=== PATIENT | female | born 1945 | race Caucasian/White ===

== ENCOUNTER 2019-09-15 05:00 | Outpatient (RCR) | payer MEDICARE, OTHER, SELFPAY | END 2019-09-15 23:59 | disposition home or self-care (01) | LOC: LAB 05:00 | PROVIDERS: Family Provider Family Medicine; Visit Provider Family Medicine | DX: E87.1 Hypo-osmolality and hyponatremia (principal); J44.9 Chronic obstructive pulmonary disease, unspecified; D64.9 Anemia, unspecified; E03.9 Hypothyroidism, unspecified; E78.5 Hyperlipidemia, unspecified; E08.40 Diabetes mellitus due to underlying condition with diabetic neuropathy, unspecified; R60.9 Edema, unspecified; N39.0 Urinary tract infection, site not specified | CPT/HCPCS: 36415 ×2; 80048 ×5; 81001; 83880; 87077; 87086 ×2; 87186 ==

== ENCOUNTER 2019-09-30 06:00 | Outpatient (RCR) | payer MEDICARE, OTHER, SELFPAY | END 2019-09-30 23:59 | disposition home or self-care (01) | LOC: LAB 06:00 | PROVIDERS: Family Provider Family Medicine; Visit Provider Family Medicine | DX: I10 Essential (primary) hypertension (principal); J44.9 Chronic obstructive pulmonary disease, unspecified; N39.0 Urinary tract infection, site not specified; E87.1 Hypo-osmolality and hyponatremia; R60.9 Edema, unspecified; D64.9 Anemia, unspecified; E03.9 Hypothyroidism, unspecified; E08.40 Diabetes mellitus due to underlying condition with diabetic neuropathy, unspecified; E78.5 Hyperlipidemia, unspecified; I48.91 Unspecified atrial fibrillation | CPT/HCPCS: 36415; 80048; 85025 ==

== ENCOUNTER 2019-10-10 08:57 | Outpatient (RCR) | payer MEDICARE, OTHER, SELFPAY ==
[2019-10-10 09:51] LABS: Anion Gap 10.8 (5-19); Blood Urea Nitrogen 9 mg/dL (8-23); Calcium 9.5 mg/Dl (8.8-10.2); Carbon Dioxide 32 mmol/L (22-29); Chloride 93 mmol/L (98-107); Glucose 103 mg/dL (74-106); Potassium 3.8 mmol/L (3.5-5.1); Sodium 132 mmol/L (136-145)
== END 2019-10-31 23:59 | disposition home or self-care (01) ==
LOC: LAB 08:57
PROVIDERS: Family Provider Family Medicine; PCP Family Medicine; Visit Provider Family Medicine
DX: E87.6 Hypokalemia (principal); E87.1 Hypo-osmolality and hyponatremia
CPT/HCPCS: 80048

== ENCOUNTER 2020-12-17 09:17 | Inpatient (IN) | payer MEDICARE, OTHER, MEDICAID, SELFPAY ==
[2020-12-17] VITALS (17 sets, daily range): BP systolic 111–142; BP diastolic 47–87; PULSE 112–125; RESP 17–25; TEMP 36.6–37.2; O2SAT 94–97; BMI 20.5
--- NOTE | 2020-12-17 09:27 | ECG_ITS ---
[facility] Test Date: 2020-12-17 Pat Name: Jenifer Schwartz Department: Room: Gender: Female [employer]el [employer] Technician: : 1945 Requested By: Ana María Toribio Order Number: [id number] Jc MD: José Miguel Steele M.D. Measurements Intervals [place] Rate: 122 P: 71 NV: 151 QRS: -87 QRSD: 81 T: 75 QT: 319 QTc: 455 Interpretive Statements SINUS TACHYCARDIA LEFT AXIS DEVIATION [QRS AXIS < -30] PATTERN CONSISTENT WITH PULMONARY DISEASE Compared to ECG 09/15/2019 15:27:59 Left-axis deviation now present Left anterior fascicular block no longer present Myocardial infarct finding no longer present Electronically Signed On 12-17-2020 23:12:32 CDT by José Miguel Steele M.D. [id number]
[2020-12-17 09:51] LABS: Basophils # 0.1 10^3/uL (0.0-0.1); Basophils % 0.3 %; Eosinophils # 0.1 10^3/uL (0.0-0.8); Eosinophils % 0.2 %; Hematocrit 35.5 % (37.0-47.0); Hemoglobin 10.9 g/dL (11.5-15.3); Lymphocytes # 2.2 10^3/uL (0.8-4.8); Lymphocytes % 7.5 %; Mean Corpuscular HGB Conc 30.7 g/dL (30.0-36.0); Mean Corpuscular Hemoglobin 24.2 pg (28.0-34.0); Mean Corpuscular Volume 78.9 fL (81-99); Mean Platelet Volume 11.6 fL (7.4-10.4); Monocytes # 2.1 10^3/uL (0.2-0.9); Monocytes % 7.1 %; Neutrophils # 24.97 10^3/uL (1.8-7.7); Neutrophils % 84.2 %; Nucleated Red Blood Cells % 0 %; Platelet Count 438 10^3/cmm (130-400); Red Cell Distribution Width 15.7 % (12.1-15.1); White Blood Count 29.7 10^3/uL (4.0-10.0)
[2020-12-17] MEDS: ondansetron 2 mg/ML SDV 2 mL 4 MG IVP ×2 (09:51→15:16)
[2020-12-17] MEDS: pantoprazole 40 mg SDV IVP ×2 (09:57→21:25)
[2020-12-17 10:02] LABS: Alanine Aminotransferase 12 U/L (0-33); Albumin Level 3.3 g/dL (3.5-5.2); Alkaline Phosphatase 54 IU/L (35-105); Aspartate Amino Transferase 16 U/L (0-32); Blood Urea Nitrogen 31 mg/dL (8-23); Calcium 8.4 mg/dL (8.5-10.5); Carbon Dioxide 27 mmol/L (22-29); Chloride 93 mmol/L (98-107); Globulin 2.8 g/dL (1.3-4.6); Glucose 145 mg/dL (65-115); Magnesium 1.8 mg/dL (1.7-2.3); Osmolality Calculated 293 mOsm/kg (285-295); Sodium 137 mmol/L (136-145); Total Bilirubin 0.2 mg/dL (0.15-1.2); Total Protein 6.1 g/dL (6.6-8.7)
--- NOTE | 2020-12-17 10:09 | CT_ITS ---
WS: [id number] CT ABDOMEN PELVIS TECHNIQUE: Contrast-enhanced CT of the abdomen and pelvis with coronal and sagittal reformatted image s. CLINICAL INFORMATION: abdominal distention, GI bleed, sepsis COMPARISON: None. DLP: 1004.[address] scans at [facility] use at least one of these dose optimization techniques: automat ed exposure control; mA and/or kV adjustment per patient size (includes targeted exams where dose is matched to clinical indication); or iterative reconstruction. FINDINGS: Small bilateral pleural effusions. Compressive atelectasis in the lung bases. Subtotal consolidation left lower lobe partially visualized. Fluid distended stomach with air-fluid levels and increased att enuation layering blood products. Small esophageal hiatal hernia. Fluid-filled duodenum and proximal small bowel loops with a few air-fluid levels. Small bowel loops in the pelvis and right lower quadra nt appear decompressed. Colon is decompressed. Rectus sheath diastases with ventral abdominal wall la xity. A few abutting small bowel loops may be due to adhesions. Transition to normal caliber small panchito wel loops distal to the outpouching. Rectosigmoid constipation. Markedly urine distended bladder. Diffuse fatty infiltration liver. Portal vein and splenic veins are patent. Normal gallbladder. Adren al glands are normal. Normal bilateral renal parenchymal enhancement. Cortical atrophy. Mild aortic c alcification. Normal caliber abdominal aorta. Left MILY. Screw fixation right hip with intramedullary cedric. Multiple chronic compression fractures in the lumbar spine and lower thoracic spine. CT/CT abdomen pelvis w con* [id number] IMPRESSION: 1. Small bilateral pleural effusions with compressive atelectasis in the lung bases. Subtotal consolidation left lower lobe. Recommend correlation for pneumo edwige. 2. Marked fluid distention of the stomach with air-fluid levels and increased attenuation blood products. No free air or perforation. Reported history of hem atemesis 3. Fluid-filled normal caliber proximal duodenum and proximal small bowel loop s with a few air-fluid levels. 4. Rectus sheath diastases with ventral abdominal wall laxity. A few abutting small bowel loops in this area. Adhesions in this area may be contributing to p artial proximal small bowel obstruction. 5. Distal small bowel and colon are normal in appearance. 6. Marked urinary distention of the bladder. Notified Ana María Toribio MD at 12/17/2020 11:39 AM.
--- NOTE | 2020-12-17 10:23 | W.ED.GIBLEED ---
HPI - GI Bleed General: Chief complaint: GI Bleed Stated complaint: NAUSEA/ BLACK TARRY EMESIS Time Seen by Provider: 12/17/20 09:23 Source: patient Mode of arrival: EMS History of Present Illness: HPI Narrative: 75-year-old female [facility] after she had nausea, coffee-ground emesis, shortness of breath, and abdominal distention. She has history of dementia, COPD, PE, CAD. She is anticoagulated on Plavix and Eliquis. When EMS arrived, they found covered in coffee-ground emesis. No reports of fever. She is a poor historian due to dementia, just says that she has been feeling like hell for 2 days, with pain and discomfort all over. Associated symptoms: Reports abdominal pain, easy bruising and vomiting; Denies chills, fever(s) or rash Review of Systems General: Reports: ROS unobtainable due to mental status Const: Denies: fever(s) or chills ENMT: Reports: hoarseness and dry mouth Card: Denies: chest pain, palpitations or edema Resp: Reports: dyspnea, productive cough and wheezing; Denies: pain on inspiration GI: Reports: abdominal pain, vomiting, coffee ground emesis, heartburn and melena : Reports: urinary frequency and urinary urgency; Denies: difficulty voiding Musc: Reports: neck pain, back pain, extremity pain, joint pain, joint stiffness, limited range of motion and muscle weakness Skin/Breast: Denies: rash, pruritus or erythema Neuro: Reports: weakness in extremities, difficulty walking and confusion Psych: Reports: anxiety, mood swings, irritability and memory loss Markie/Lymph: Reports: easy bruising and easy bleeding PFSH ED PFSH: Medical History Ataxia Congestive heart failure Chronic combined systolic/diastolic COPD (chronic obstructive pulmonary disease) Coronary artery disease / [place] COVID-19 Aug 2020 Degenerative joint disease Dementia Depression DVT (deep venous thrombosis) Hypertension Neuropathy Pulmonary embolism Type 2 diabetes mellitus Surgical History History of primary section x 3 Status post hip surgery Bilateral hip fractures Social History Smoking and tobacco status: former smoker Quit status (tobacco): has quit using tobacco Year quit tobacco: 2016 Former quit date comment: [id number] history previously Alcohol intake: never Physical Exam Const: COMMON NORMALS: no acute distress GENERAL APPEARANCE: cooperative, anxious and frail appearing; not diaphoretic and not Edematous NUTRITIONAL APPEARANCE: thin ORIENTATION/CONSCIOUSNESS: Yes awake and Yes oriented to person HENMT: COMMON NORMALS: normocephalic and atraumatic HEAD & SCALP: normocephalic and atraumatic FACE & SINUS: normal facial exam and face symmetric GI: COMMON NORMALS: Soft to palpation INSPECTION: Yes abdominal distension AUSCULTATION: Yes Hypoactive bowel sounds present PALPATION: Yes Soft to palpation, Yes Tenderness to palpation present (GI), No Guarding due to palpation present (GI) and No Rigid due to palpation PERCUSSION: tympanic to percussion Extremity: COMMON NORMALS: normal to inspection and no clubbing, cyanosis or edema Neuro: SENSORIUM/ORIENTATION: Yes oriented to person Skin: COMMON NORMALS: no rashes or lesions noted, no wounds and no jaundice NARRATIVE SKIN EXAM: Pale GENERAL SKIN EXAM: no rashes or lesions noted Course Vital Signs: Vital signs: Vital Signs Temperature 97.6 F 12/19/20 14:42 Pulse Rate 93 12/19/20 15:17 Respiratory Rate 18 12/19/20 15:11 Blood Pressure 117/51 12/19/20 14:42 Pulse Oximetry 97 12/19/20 15:11 MDM - GI Bleed MDM Narrative: Medical decision making narrative: 75[facility] and Plavix presenting with abdominal distention, acute coffee-ground emesis since this morning. She is tachycardic in the 120s on arrival, otherwise does not appear to be in any distress. She has residual coffee-ground emesis around her neck , and staining of her mouth. Her abdomen is distended and tympanic, tender, without any rebound or guarding. Initial l hemoglobin is stable at 10.9, white count is elevated 29.7. Empiric antibiotics initiated-suspect UTI versus intra-abdominal infection or both. Urine sent for culture. Kcentra given to reverse start reversal of anticoagulation, Protonix 40 mg IVX1 2 units of blood type and screen, on hold. I expect hgb will drop significantly on serial draws. CT abdomen shows markedly distended stomach with air-fluid levels, and increased attenuation suggesting content is blood products. No free air. Possible partial proximal small bowel obstruction, urinary distention. Repeat H&H, hemoglobin down to 9.1, hemodynamics unchanged still mildly tachycardic. Discussed the case with Dr. Brannon who will consult on the case after she is admitted. No emergent endoscopy indicated at this time since she has had no signs of active bleeding and her hemoglobin is stable, and she still has the anticoagulants in her system. Discussed the case with Dr. Magallanes, hospitalist, she agrees with keeping the blood on hold for now with a hgb threshold to transfuse of 8.0 since she had does have underlying CAD and is anticoagulated. Medical Records: Attestation: I reviewed the patient's medical records. Lab Data: Attestation: I reviewed the patient's lab results. Labs: Lab Results 12/17/20 12/17/20 12/17/20 Range/Units 09:25 09:25 09:25 WBC 29.7 H (4.0-10.0) 10^3/ uL RBC 4.50 (4.1-5.3) 10^6/u L Hgb 10.9 L (11.5-15.3) g/dL Hct 35.5 L (37.0-47.0) % MCV 78.9 L (81-99) fL MCH 24.2 L (28.0-34.0) pg MCHC 30.7 (30.0-36.0) g/dL RDW 15.7 H (12.1-15.1) % Plt Count 438 H (130-400) 10^3/c mm MPV 11.6 H (7.4-10.4) fL Neut % (Auto) 84.2 % Lymph % (Auto) 7.5 % [place] % (Auto) 7.1 % Eos % (Auto) 0.2 % Baso % (Auto) 0.3 % Neut # (Auto) 24.97 H (1.8-7.7) 10^3/u L Lymph # (Auto) 2.2 (0.8-4.8) 10^3/u L [place] # (Auto) 2.1 H (0.2-0.9) 10^3/u L Eos # (Auto) 0.1 (0.0-0.8) 10^3/u L Baso # (Auto) 0.1 (0.0-0.1) 10^3/u L Nucleated RBC % (a uto) 0 % Nucleated RBCs # 0.0 /100WBC PT 15.60 H (12.1-14.9) SECO NDS INR 1.20 (0.8-1.2) Sodium 137 (136-145) mmol/L Potassium 4.0 (3.5-5.1) mmol/L Chloride 93 L (98-107) mmol/L Carbon Dioxide 27 (22-29) mmol/L Anion Gap 21.0 H (5-19) BUN 31 H (8-23) mg/dL Creatinine 0.5 (0.5-0.9) mg/dL GFR Calculation Not Reportable Glucose 145 H (65-115) mg/dL Calculated Osmolal ity 293 (285-295) mOsm/k g Lactate (0.5-2.2) mmol/L Calcium 8.4 L (8.5-10.5) mg/dL Magnesium 1.8 (1.7-2.3) mg/dL Total Bilirubin 0.2 (0.15-1.2) mg/dL AST 16 (0-32) U/L ALT 12 (0-33) U/L Alkaline Phosphata se 54 (35-105) IU/L Total Protein 6.1 L (6.6-8.7) g/dL Albumin 3.3 L (3.5-5.2) g/dL Globulin 2.8 (1.3-4.6) g/dL Urine Color (Yellow) Urine Appearance (CLEAR) Urine pH (5-7) Ur Specific Gravit y (1.005-1.030) Urine Protein (Negative) Urine Glucose (UA) (Normal) Urine Ketones (Negative) Urine Blood (Negative) Urine Nitrate (Negative) Urine Bilirubin (Negative) Urine Urobilinogen (Negative) mg/dL Ur Leukocyte Sharlene ase (Negative) Urine RBC (0-2) /hpf Urine WBC (0-5) /hpf Ur Squamous Epith Cells (0-5) /hpf Amorphous Sediment Urine Bacteria (NONE) /hpf Urine Mucus /hpf Blood Type Rho(D) Type Antibody Screen Crossmatch 12/17/20 12/17/20 12/17/20 Range/Units 09:53 11:23 11:40 WBC (4.0-10.0) 10^3/ uL RBC (4.1-5.3) 10^6/u L Hgb (11.5-15.3) g/dL Hct (37.0-47.0) % MCV (81-99) fL MCH (28.0-34.0) pg MCHC (30.0-36.0) g/dL RDW (12.1-15.1) % Plt Count (130-400) 10^3/c mm MPV (7.4-10.4) fL Neut % (Auto) % Lymph % (Auto) % [place] % (Auto) % Eos % (Auto) % Baso % (Auto) % Neut # (Auto) (1.8-7.7) 10^3/u L Lymph # (Auto) (0.8-4.8) 10^3/u L [place] # (Auto) (0.2-0.9) 10^3/u L Eos # (Auto) (0.0-0.8) 10^3/u L Baso # (Auto) (0.0-0.1) 10^3/u L Nucleated RBC % (a uto) % Nucleated RBCs # /100WBC PT (12.1-14.9) SECO NDS INR (0.8-1.2) Sodium (136-145) mmol/L Potassium (3.5-5.1) mmol/L Chloride (98-107) mmol/L Carbon Dioxide (22-29) mmol/L Anion Gap (5-19) BUN (8-23) mg/dL Creatinine (0.5-0.9) mg/dL GFR Calculation Glucose (65-115) mg/dL Calculated Osmolal ity (285-295) mOsm/k g Lactate 1.0 (0.5-2.2) mmol/L Calcium (8.5-10.5) mg/dL Magnesium (1.7-2.3) mg/dL Total Bilirubin (0.15-1.2) mg/dL AST (0-32) U/L ALT (0-33) U/L Alkaline Phosphata se (35-105) IU/L Total Protein (6.6-8.7) g/dL Albumin (3.5-5.2) g/dL Globulin (1.3-4.6) g/dL Urine Color Yellow (Yellow) Urine Appearance Cloudy (CLEAR) Urine pH 5 (5-7) Ur Specific Gravit y 1.015 (1.005-1.030) Urine Protein Trace (Negative) Urine Glucose (UA) Norm (Normal) Urine Ketones 1+ H (Negative) Urine Blood 2+ H (Negative) Urine Nitrate Negative (Negative) Urine Bilirubin 1+ H (Negative) Urine Urobilinogen 1 H (Negative) mg/dL Ur Leukocyte Sharlene ase 2+ H (Negative) Urine RBC 25-40 H (0-2) /hpf Urine WBC >100 H (0-5) /hpf Ur Squamous Epith Cells 5-10 H (0-5) /hpf Amorphous Sediment Not Reportable Urine Bacteria 3+ H (NONE) /hpf Urine Mucus 1+ /hpf Blood Type A Positive Rho(D) Type Positive / 4+ Antibody Screen Negative Crossmatch See Detail 12/17/20 Range/Units 12:16 WBC (4.0-10.0) 10^3/ uL RBC (4.1-5.3) 10^6/u L Hgb 9.1 L (11.5-15.3) g/dL Hct 30.2 L (37.0-47.0) % MCV (81-99) fL MCH (28.0-34.0) pg MCHC (30.0-36.0) g/dL RDW (12.1-15.1) % Plt Count (130-400) 10^3/c mm MPV (7.4-10.4) fL Neut % (Auto) % Lymph % (Auto) % [place] % (Auto) % Eos % (Auto) % Baso % (Auto) % Neut # (Auto) (1.8-7.7) 10^3/u L Lymph # (Auto) (0.8-4.8) 10^3/u L [place] # (Auto) (0.2-0.9) 10^3/u L Eos # (Auto) (0.0-0.8) 10^3/u L Baso # (Auto) (0.0-0.1) 10^3/u L Nucleated RBC % (a uto) % Nucleated RBCs # /100WBC PT (12.1-14.9) SECO NDS INR (0.8-1.2) Sodium (136-145) mmol/L Potassium (3.5-5.1) mmol/L Chloride (98-107) mmol/L Carbon Dioxide (22-29) mmol/L Anion Gap (5-19) BUN (8-23) mg/dL Creatinine (0.5-0.9) mg/dL GFR Calculation Glucose (65-115) mg/dL Calculated Osmolal ity (285-295) mOsm/k g Lactate (0.5-2.2) mmol/L Calcium (8.5-10.5) mg/dL Magnesium (1.7-2.3) mg/dL Total Bilirubin (0.15-1.2) mg/dL AST (0-32) U/L ALT (0-33) U/L Alkaline Phosphata se (35-105) IU/L Total Protein (6.6-8.7) g/dL Albumin (3.5-5.2) g/dL Globulin (1.3-4.6) g/dL Urine Color (Yellow) Urine Appearance (CLEAR) Urine pH (5-7) Ur Specific Gravit y (1.005-1.030) Urine Protein (Negative) Urine Glucose (UA) (Normal) Urine Ketones (Negative) Urine Blood (Negative) Urine Nitrate (Negative) Urine Bilirubin (Negative) Urine Urobilinogen (Negative) mg/dL Ur Leukocyte Sharlene ase (Negative) Urine RBC (0-2) /hpf Urine WBC (0-5) /hpf Ur Squamous Epith Cells (0-5) /hpf Amorphous Sediment Urine Bacteria (NONE) /hpf Urine Mucus /hpf Blood Type Rho(D) Type Antibody Screen Crossmatch Discharge Plan Discharge Patient Disposition: Admitted As Inpatient Admit Provider: Kim Magallanes Coding Level of Care Code ED Director Phone for g Fwd Exam Detailed
[2020-12-17 12:00] LABS: Add Urine Microscopic? YES; Bilirubin Urine 1+ (Negative); Blood Urine 2+ (Negative); Glucose Urine UA Norm (Normal); Ketones Urine 1+ (Negative); Leukocyte Esterase Urine 2+ (Negative); Nitrate Urine Negative (Negative); Protein Urine Trace (Negative); Specific Gravity, Urine 1.015 (1.005-1.030); Urine Appearance Cloudy (CLEAR); Urine Color Yellow (Yellow); Urobilinogen Urine 1 mg/dL (Negative); pH Urine 5 (5-7)
[2020-12-17 12:08] LABS: Add Urine Culture? Yes; Bacteria Urine 3+ /hpf; Mucus Urine 1+ /hpf; RBC Urine 25-40 /hpf (0-2); WBC Urine >100 /hpf (0-5)
[2020-12-17 12:24] LABS: Hematocrit 30.2 % (37.0-47.0); Hemoglobin 9.1 g/dL (11.5-15.3)
--- NOTE | 2020-12-17 13:25 | XR_ITS ---
WS: [id number] XR chest 1V portable [id number] REASON FOR EXAM: NG TUBE PLACEMENT VERIFICATION FINDINGS: Consolidation in both lower lobes most notably on the left. Moderate pleural effusion on the right sm aller pleural effusion on the left. Nasogastric tube has been placed. The tip is below the diaphragm or there is still significant gaseou s distention of the stomach. Advancement of 2 to 3 cm may be beneficial. XR/XR chest 1V portable [id number] IMPRESSION: Bilateral lower lobe consolidation and pleural effusions. Nasogastric position as above.
--- NOTE | 2020-12-17 14:18 | PC.NURSE ---
Claudia and I assisted the patient by changing the bedding and cleaning the patient up and changed her gown. We then boosted her up in bed to make her more comfortable. Patient is resting as comfortably as she can at this time.
[2020-12-17 14:40] LABS: Hematocrit 31.1 % (37.0-47.0); Hemoglobin 9.4 g/dL (11.5-15.3)
--- NOTE | 2020-12-17 14:46 | P.CONIM_ITS ---
Providers/Reason For Consult Consulting Physican/Specialty*: General Surgery Arsen Brannon MD Reason for Consult*: Coffee-ground emesis. Primary Care Provider: Fanny Devlin [place] [facility] [place] Illness History of Present Illness Jenifer Schwartz is a 75 year old female brought from a longterm today for repeated episodes of coffee-ground appearing emesis. The patient was found to be mildly anemic on presentation but a CAT scan showed that her stomach was full of fluid, some of which appear to be fresh blood given the blush that was seen. The patient has been on Plavix, Eliquis and aspirin for a couple of years following the diagnosis of a DVT/PE. She has never had any history of peptic ulcer disease to her knowledge. She has no endoscopic reports in the [facility] computer system. The patient denies any epigastric discomfort. She does normally have some problems with constipation. Review of Systems General: Reports: 10 or more systems reviewed and unremarkable except in HPI and below Const: Denies: fever(s) Resp: Reports: dyspnea (On occasion --gets nebulizer treatments) GI: Reports: nausea, coffee ground emesis and constipation; Denies: abdominal pain : Reports: other (History of urinary tract infections) Meds/Allergies Home Medications and Allergies Home Medications Medication Instructions Recorded Confirmed Last Taken Type acetaminophen [Tylenol] 650 mg PO QID PRN 12/17/20 12/17/20 12/16/20 History albuterol sulfate 2.5 mg INHALATION Q4H PRN 12/17/20 12/17/20 Unknown History apixaban [Eliquis] 5 mg PO BID@08,20 12/17/20 12/17/20 12/17/20 History bisacodyl 10 mg ID DAILY PRN 12/17/20 12/17/20 Unknown History budesonide-formoterol [Symbicort] 2 puff INHALATION BID@08,199912/17/20 12/17/20 12/17/20 History camphor-menthol [Biofreeze] 1 applic TOPICAL TID PRN 12/17/20 12/17/20 Unknown History clopidogrel [Plavix] 75 mg PO DAILY@0800 12/17/20 12/17/20 12/17/20 History food supplemt, lactose-reduced 30 ea PO BID 03/12/17/20 12/17/20 History [TwoCal HN] furosemide [Lasix] 20 mg PO DAILY@0800 12/17/20 12/17/20 12/17/20 History gabapentin 100 mg PO TID@0800,1600,199912/17/20 12/17/20 12/17/20 History hydrocodone-acetaminophen 1 tab PO Q6H PRN 12/17/20 12/17/20 Unknown History ipratropium-albuterol 3 ml INHALATION Q4H PRN 12/17/20 12/17/20 12/17/20 History lorazepam 0.5 mg PO Q4H PRN 12/17/20 12/17/20 12/16/20 History magnesium hydroxide [Milk of 30 ml PO DAILY PRN 12/17/20 12/17/20 Unknown History Magnesia] metoprolol tartrate 12.5 mg PO BID@,12/17/20 12/17/20 12/17/20 History mirtazapine 7.5 mg PO DAILY@199912/17/20 12/17/20 12/16/20 History multivitamin 1 tab PO DAILY@0800 12/17/20 12/17/20 12/17/20 History ondansetron HCl [Zofran] 4 mg PO Q8H PRN 12/17/20 12/17/20 12/17/20 History pantoprazole 40 mg PO DAILY@08 12/17/20 12/17/20 12/17/20 History polyethylene glycol 3350 [Miralax] 17 g PO DAILY PRN 12/17/20 12/17/20 Unknown History potassium chloride 10 meq PO DAILY@0800 12/17/20 12/17/20 12/17/20 History sennosides-docusate sodium 1 tab-cap PO BID PRN 12/17/20 12/17/20 Unknown History [Senna-S] simvastatin 40 mg PO DAILY@199912/17/20 12/17/20 12/16/20 History sodium phosphates [Enema 118 ml ID DAILY PRN 12/17/20 12/17/20 Unknown History Disposable] Allergies Allergy/AdvReac Type Severity Reaction Status Date / Time No Known Allergies Allergy Verified 12/17/20 09:37 PFSH Acute PFSH: Medical History (Updated 12/17/20 @ 17:01 by Arsen Brannon MD) Ataxia Congestive heart failure Chronic combined systolic/diastolic COPD (chronic obstructive pulmonary disease) Coronary artery disease / [place] Degenerative joint disease Dementia Depression DVT (deep venous thrombosis) Hypertension Neuropathy Pulmonary embolism Type 2 diabetes mellitus Surgical History (Updated 12/17/20 @ 17:07 by Arsen Brannon MD) History of primary section x 3 Status post hip surgery Bilateral hip fractures Social History (Updated 12/17/20 @ 16:29 by Arsen Brannon MD) Smoking and tobacco status: former smoker Quit status (tobacco): has quit using tobacco Year quit tobacco: 2016 Former quit date comment: [id number] history previously Alcohol intake: never Vitals/I&O/Wt Last Vital Signs Temp 97.8 F 12/17/20 09:18 Pulse 115 H 12/17/20 13:00 Resp 19 H 12/17/20 13:00 BP 142/62 12/17/20 13:00 Pulse Ox 95 12/17/20 13:00 Weight last 48 hrs Weight 120 lb Physical Exam Narrative: EXAM NARRATIVE: The patient was encountered in her room in the emergency department. She does not appear to be in any distress. There is a nasogastric tube in place which is draining fairly black material. The pupils are equal. No carotid bruits are heard. The lungs are clear anteriorly. The heart sounds are somewhat distant but her heart is regular. The abdomen is mildly obese but is soft and completely nontender. I cannot feel any obvious masses. The extremities reveal no edema. Neurologically the patient appears to be grossly intact Data Imaging^: CT Abd/Pel: Radiologist's impression: CT scan abdomen/pelvis 12/17/2020 IMPRESSION: 1. Small bilateral pleural effusions with compressive atelectasis in the lung bases. Subtotal consolidation left lower lobe. Recommend correlation for pneumonia. 2. Marked fluid distention of the stomach with air-fluid levels and increased attenuation blood products. No free air or perforation. Reported history of hematemesis 3. Fluid-filled normal caliber proximal duodenum and proximal small bowel loops with a few air-fluid levels. 4. Rectus sheath diastases with ventral abdominal wall laxity. A few abutting small bowel loops in this area. Adhesions in this area may be contributing to partial proximal small bowel obstruction. 5. Distal small bowel and colon are normal in appearance. 6. Marked urinary distention of the bladder. A&P Assessment and plan (1) Coffee ground emesis: This apparently just started earlier today. The patient has been on Plavix, Eliquis and aspirin for some time. She is obviously going to bleed from things more readily than someone who does not have to be on these medications. I discussed an EGD with with the patient and her daughter. Details and risks of the procedure were gone over. The patient seems to understand and is agreeable to proceeding with an EGD tomorrow morning, assuming continued stability. I will make arrangements for an EGD tomorrow morning around 9:00 ? 9:30. Status: Acute (2) Anemia due to blood loss: The patient has been transfused. I expect her hemoglobin level would have continued to drop with hydration/equilibration without a transfusion. Status: Acute Consult Attestations Medical Necessity Statement: See admitting service's notation. Coding Level of Care Code Acute Weather Algorithm Scientist for [facility] Diagnoses Coffee ground emesis K92.0 Anemia due to blood loss D50.0
[2020-12-17] MEDS: piperacillin-tazobactam 3.375 GM in sodium chloride 0.9% (plus) 50 ML IV ×2 (15:21→23:37)
--- NOTE | 2020-12-17 16:53 | PM.HP ---
Providers/Chief Complaint Admitting Physician: Kim Magallanes MD Primary Care Provider: Fanny Devlin MD, [facility] Chief Complaint: NAUSEA/ BLACK TARRY VOMIT History of Present Illness History obtained by talking to patient and [place] staff. Jenifer Schwartz is a 75 year old female with PMH as below sent from [facility] today after being noted to have several episodes of hematemesis starting overnight, described as coffee ground emesis. She appared to have had Viral gastroenteritis earlier this week when several other patients at the facility had nausea, vomiting and diarrhea. Symptoms then subsided in 48 hrs, until vomiting started again last night. Asymptomatic between episodes. No aman noted at [place] however at time of my exam patient having melanotic BM. She is tachycardix with HR ~110, however BP has remained stable. Denies any dizziness, LOC. Afebrile. Denies abdominal pain. No past h/o GI bleed. Hb currently at 10.9 initially, drifted to ~[address] abdomen obtaiend in ER showed distended stomach with blood, NGT placed from which coffee ground matreial is currenty being aspirated. H/o covid 19 infection in August 2020. Not vaccinated per her wishes. At baseline, patient has short term memory imapirment, however able to have appropriate conversation. Self feeds,ambulates with assistance. Review of Systems General: Reports: 10 or more systems reviewed and unremarkable except in HPI and below Const: Denies: fever(s), chills or body aches Eyes: Denies: change in vision, blurry vision or photophobia ENMT: Reports: hoarseness; Denies: throat pain, enlarged tonsils, odynophagia or nasal congestion Card: Denies: chest pain, palpitations, irregular heart rhythm, edema, swelling of feet/ankles, lightheadedness, pre-syncope, dyspnea on exertion or orthopnea Resp: Denies: dyspnea, productive cough, non-productive cough, wheezing, stridor, pain on inspiration, change in phlegm color, hemoptysis or chest congestion GI: Denies: abdominal pain, nausea, vomiting, hematemesis, coffee ground emesis, dysphagia, heartburn, diarrhea, constipation, GI cramping, change in stool character, hematochezia or melena : Denies: flank pain, difficulty voiding, dysuria, urinary frequency, urinary urgency, urinary hesitancy or hematuria Musc: Denies: neck pain, back pain, extremity pain, joint swelling, joint warmth or deformity Neuro: Denies: headache(s), numbness in extremities, weakness in extremities, sensory changes, difficulty walking, frequent falls, dizziness, vertigo, behavioral changes, Slurred speech present or seizure-like activity Psych: Denies: anxiety, depression, suicidal ideation or homicidal ideation Endo: Denies: polyuria, polydipsia, tired all the time, cold intolerance or hot flashes Markie/Lymph: Denies: easy bruising or easy bleeding Medications/Allergies Home Medications Medication Instructions Recorded Confirmed Last Taken Type acetaminophen [Tylenol] 650 mg PO QID PRN 12/17/20 12/17/20 12/16/20 History albuterol sulfate 2.5 mg INHALATION Q4H PRN 12/17/20 12/17/20 Unknown History apixaban [Eliquis] 5 mg PO BID@08,20 12/17/20 12/17/20 12/17/20 History bisacodyl 10 mg NE DAILY PRN 12/17/20 12/17/20 Unknown History budesonide-formoterol [Symbicort] 2 puff INHALATION BID@0800,199912/17/20 12/17/20 12/17/20 History camphor-menthol [Biofreeze] 1 applic TOPICAL TID PRN 12/17/20 12/17/20 Unknown History clopidogrel [Plavix] 75 mg PO DAILY@0800 12/17/20 12/17/20 12/17/20 History food supplemt, lactose-reduced 30 ea PO BID 12/17/20 12/17/20 12/17/20 History [TwoCal HN] furosemide [Lasix] 20 mg PO DAILY@0800 12/17/20 12/17/20 12/17/20 History gabapentin 100 mg PO TID@0800,1600,199912/17/20 12/17/20 12/17/20 History hydrocodone-acetaminophen 1 tab PO Q6H PRN 12/17/20 12/17/20 Unknown History ipratropium-albuterol 3 ml INHALATION Q4H PRN 12/17/20 12/17/20 12/17/20 History lorazepam 0.5 mg PO Q4H PRN 12/17/20 12/17/20 12/16/20 History magnesium hydroxide [Milk of 30 ml PO DAILY PRN 12/17/20 12/17/20 Unknown History Magnesia] metoprolol tartrate 12.5 mg PO BID@,12/17/20 12/17/20 12/17/20 History mirtazapine 7.5 mg PO DAILY@199912/17/20 12/17/20 12/16/20 History multivitamin 1 tab PO DAILY@0812/17/20 12/17/20 12/17/20 History ondansetron HCl [Zofran] 4 mg PO Q8H PRN 12/17/20 12/17/20 12/17/20 History pantoprazole 40 mg PO DAILY@12/17/20 12/17/20 12/17/20 History polyethylene glycol 3350 [Miralax] 17 g PO DAILY PRN 12/17/20 12/17/20 Unknown History potassium chloride 10 meq PO DAILY@0812/17/20 12/17/20 12/17/20 History sennosides-docusate sodium 1 tab-cap PO BID PRN 12/17/20 12/17/20 Unknown History [Senna-S] simvastatin 40 mg PO DAILY@199912/17/20 12/17/20 12/16/20 History sodium phosphates [Enema 118 ml NE DAILY PRN 12/17/20 12/17/20 Unknown History Disposable] Allergies Allergy/AdvReac Type Severity Reaction Status Date / Time No Known Allergies Allergy Verified 12/17/20 09:37 PFSH Acute PFSH: Medical History (Updated 12/17/20 @ 19:19 by Kim Magallanes MD) Ataxia Congestive heart failure Chronic combined systolic/diastolic COPD (chronic obstructive pulmonary disease) Coronary artery disease / [place] COVID-19 Aug 2020 Degenerative joint disease Dementia Depression DVT (deep venous thrombosis) Hypertension Neuropathy Pulmonary embolism Type 2 diabetes mellitus Surgical History History of primary section x 3 Status post hip surgery Bilateral hip fractures Social History Smoking and tobacco status: former smoker Quit status (tobacco): has quit using tobacco Year quit tobacco: 2017 Former quit date comment: [id number] history previously Alcohol intake: never Vitals/I&O/Wt Last Vital Signs Temp 97.8 F 12/17/20 09:18 Pulse 114 H 12/17/20 14:45 Resp 22 H 12/17/20 15:00 BP 117/87 12/17/20 15:00 Pulse Ox 96 12/17/20 15:00 12/17/20 12/17/20 12/17/20 06:59 14:59 22:59 Intake Total 110 / 110 60 / 170 Balance 110 / 110 60 / 170 Weight last 48 hrs Weight 54.431 kg Physical Exam Narrative: EXAM NARRATIVE: General: No acute distress, AO x3 HEENT: PERRLA, pupils bilaterally equal and reactive, pallors present, NGT to suction Chest: Normal vesicular breath sounds, no added sounds, equal good air entry bilaterally CVS: S1-S2 regular, no murmurs, no tachycardia, no gallops, no rubs Abdomen: Soft, nontender, no organomegaly, bowel sounds present Neuro: No focal deficits, no facial deformity, AO x3, power 5/5 in all limbs Extremities: no edema, cyanosis or clubbing Data : 12/17/20 14:30 12/17/20 09:25 A&P Assessment and plan (1) Anemia due to blood loss: monitor H&H every 6 hrs transfuse if Hb <8 currently with tachycardia, BP stable, no dizziness or LOC Status: Acute (2) Coffee ground emesis: likely 2/[address] ALSTON consulted to evalute for UGIE protonix 40mg iv q12h patient is on Eliquis for h/o DVT/PE and Plavix, both of which are on hold currently she has received K centra in the ER x 1 NPO Gentle IVF Status: Acute (3) Aspiration into respiratory tract: B/L LL consolidation , may be related to aspiration overnight from emesis no reported cough, fever or dyspnea Leukocytosis may be 2/2 hemoconecntration, however in the presence of B/L infiltrates and positive UA, cannot exclude infection Stated on empiric zosyn s/p Covid in Aug 2020 Status: Acute (4) UTI (urinary tract infection): + UA, leukocytosis Status: Acute Attestations Medical Necessity Statement*: UGI bleed, anemia, close HB monitoring, need for iv abx as above, anticipate >2midnight admission Coding Level of Care Code Acute Twisting Operator for g Fwd Diagnoses Anemia due to blood loss D50.0 Coffee ground emesis K92.0 Aspiration into respiratory tract T17.908A UTI (urinary tract infection) N39.0
[2020-12-17 20:51] LABS: Hematocrit 30.6 % (37.0-47.0); Hemoglobin 9.2 g/dL (11.5-15.3)
[2020-12-17] MEDS: ipratropium-albuterol 3 mL Neb INHALATION (22:04)
--- NOTE | 2020-12-17 23:40 | PC.NURSE ---
Patient has NG tube placed to right nare in ED. Attached to intermittent suction. Very small amount of clear fluid observed with small amount of coffee ground sediment. Patient denies any nausea at present. No distress observed.
[2020-12-18] VITALS (19 sets, daily range): BP systolic 98–157; BP diastolic 49–73; PULSE 87–122; RESP 16–26; TEMP 36.5–37.4; O2SAT 90–963
[2020-12-18 04:07] LABS: Basophils # 0.1 10^3/uL (0.0-0.1); Basophils % 0.3 %; Eosinophils # 0.2 10^3/uL (0.0-0.8); Eosinophils % 0.9 %; Hematocrit 28.8 % (37.0-47.0); Hemoglobin 8.5 g/dL (11.5-15.3); Lymphocytes # 2.5 10^3/uL (0.8-4.8); Lymphocytes % 9.5 %; Mean Corpuscular HGB Conc 29.5 g/dL (30.0-36.0); Mean Corpuscular Hemoglobin 24.2 pg (28.0-34.0); Mean Corpuscular Volume 82.1 fL (81-99); Mean Platelet Volume 11.4 fL (7.4-10.4); Monocytes % 7.6 %; Neutrophils # 21.21 10^3/uL (1.8-7.7); Neutrophils % 80.9 %; Nucleated Red Blood Cells % 0 %; Platelet Count 336 10^3/cmm (130-400); Red Blood Count 3.51 10^6/uL (4.1-5.3); White Blood Count 26.2 10^3/uL (4.0-10.0)
[2020-12-18 04:43] LABS: Alanine Aminotransferase 26 U/L (0-33); Albumin Level 2.8 g/dL (3.5-5.2); Alkaline Phosphatase 52 IU/L (35-105); Anion Gap 14.2 (5-19); Aspartate Amino Transferase 36 U/L (0-32); Blood Urea Nitrogen 20 mg/dL (8-23); Calcium 8.3 mg/dL (8.5-10.5); Carbon Dioxide 27 mmol/L (22-29); Chloride 97 mmol/L (98-107); Globulin 2.9 g/dL (1.3-4.6); Glucose 105 mg/dL (65-115); Osmolality Calculated 283 mOsm/kg (285-295); Potassium 3.2 mmol/L (3.5-5.1); Sodium 135 mmol/L (136-145); Total Bilirubin 0.2 mg/dL (0.15-1.2); Total Protein 5.7 g/dL (6.6-8.7)
--- NOTE | 2020-12-18 04:45 | PC.NURSE ---
BLOOD transfusion orders. Patient arrived to the floor at 1850 yesterday. She has orders to transfuse blood from 0935 yesterday morning while in er. I received in report that this was not done due to hgb being 10.9 at that time but has active gi bleed. Her hgb is now 8.5. Spoke with Dr Nicholson regarding orders for blood transfusion. Received instructions from Dr Nicholson to continue to hold blood for now.
[2020-12-18] MEDS: piperacillin-tazobactam 3.375 GM in sodium chloride 0.9% (plus) 50 ML IV ×3 (06:31→22:48)
[2020-12-18] MEDS: ipratropium-albuterol 3 mL Neb INHALATION ×3 (07:27→20:09)
--- NOTE | 2020-12-18 08:29 | PM.PN ---
Subjective Subjective: Interval history: The patient is sleeping this morning but is easily arousable. She still denies any abdominal pain. She says the nasogastric tube continues to hurt the right side of her throat. Vitals/I&O/Wt Last Vital Signs Temp 98.7 F 12/18/20 03:07 Pulse 105 H 12/18/20 07:34 Resp 23 H 12/18/20 07:31 BP 128/60 12/18/20 07:31 Pulse Ox 99 12/18/20 07:31 12/17/20 12/18/20 12/18/20 22:59 06:59 14:59 Intake Total 110 / 270 50 / 270 Balance 110 / 270 50 / 270 Weight last 48 hrs Weight 120 lb Physical Exam Narrative: EXAM NARRATIVE: Nursing reports no output from the nasogastric tube. Vital signs appear stable. The patient's abdomen remained soft and nontender. Data : 12/18/20 03:21 12/18/20 03:21 A&P Assessment and plan (1) Coffee ground emesis: No further emesis/NG output. EGD this morning. We will plan to start some normal saline with potassium supplementation following the procedure today. Status: Acute (2) Anemia due to blood loss: The patient has been transfused. I expect her hemoglobin level would have continued to drop with hydration/equilibration without a transfusion. Status: Acute Attestations Medical Necessity Statement*: See admitting service's notation. Coding Level of Care Code Acute Surgical Aides Teacher for [facility] Diagnoses Coffee ground emesis K92.0 Anemia due to blood loss D50.0
[2020-12-18] MEDS: sodium chloride 0.9% 1,000 ML 30 ML IV (09:27)
--- NOTE | 2020-12-18 09:34 | P.ANESASSM_ITS ---
Pre-Anesthetic Assessment Pre-Anesthetic Assessment: Height/Weight: Height 1.63 m Weight 54.431 kg Temp Pulse Resp BP Pulse Ox 97.7 F 103 H 18 138/55 94 12/18/20 08:37 12/18/20 08:56 12/18/20 08:56 12/18/20 08:56 12/18/20 08:56 Proposed Procedure: Operation Date: 12/18/20 09:45 Proposed Procedures p EGD(Not Applicable) - Arsen Brannon MD Operation Date: 12/18/20 09:45 Proposed Procedures p EGD(Not Applicable) - Arsen Brannon MD Was Beta Sanaz taken within 24 hours: Yes Was Clonidine taken within 24 hours: N/A Social: Social History: No alcohol and No tobacco Exam: Pre-Anes Outpt Exam: alert, oriented x 3, clear to auscultation bilaterally and regular rate & rhythm Airway: Submandibular: WNL Cervical ROM: WNL MP: 2 Dentition: False CV/HEM: CV/HEM: Anemia and HTN GI: GI: GERD Anesthetic Plan: ASA status: 3E Anesthesia: MAC Risk of > 500 ml blood loss (7ml/kg in children): No Meds/Allergies Current Medications: Current Medications Generic Name Dose Route Start Last Admin Trade Name Freq PRN Reason Stop Dose Admin Albuterol/Ipratrop ium 3 ml 12/17/20 17:42 12/18/20 07:27 Ipratropium-Albu terol 3 Ml Neb INHALATION 3 ml Q4H.RESPIRATORY P RN Administration Shortness Of Harleen th Piperacillin Sod/T azobactam 50 mls @ 12.5 mls /hr 12/17/20 23:30 12/18/20 06:31 Sod 3.375 gm/ So dium Chloride IV 12.5 mls/hr Q8H JESSICA Administration Protocol Sodium Chloride 1,000 mls @ 30 ml s/hr 12/18/20 09:00 12/18/20 09:28 Sodium Chloride 0.9% IV 12/19/20 08:59 Not Given .Q24H JESSICA Pantoprazole Sodiu m 40 mg 12/17/20 22:00 12/17/20 21:25 Pantoprazole 40 Mg Sdv IVP 40 mg Q12H JESSICA Administration PFSH Anesthesia PFSH: Medical History (Updated 12/17/20 @ 19:19 by Kim Magallanes MD) Ataxia Congestive heart failure Chronic combined systolic/diastolic COPD (chronic obstructive pulmonary disease) Coronary artery disease / [place] COVID-19 Aug 2020 Degenerative joint disease Dementia Depression DVT (deep venous thrombosis) Hypertension Neuropathy Pulmonary embolism Type 2 diabetes mellitus Surgical History History of primary section x 3 Status post hip surgery Bilateral hip fractures Social History Smoking and tobacco status: former smoker Quit status (tobacco): has quit using tobacco Year quit tobacco: 2016 Former quit date comment: [id number] history previously Alcohol intake: never Data Anesthesia CBC & Chem 7: 12/18/20 03:21 12/18/20 03:21 Other Labs: Laboratory Results - last 48 hr 12/17/20 12/17/20 12/17/20 09:25 09:25 09:25 WBC 29.7 H RBC 4.50 Hgb 10.9 L Hct 35.5 L MCV 78.9 L MCH 24.2 L MCHC 30.7 RDW 15.7 H Plt Count 438 H MPV 11.6 H Neut % (Auto) 84.2 Lymph % (Auto) 7.5 [place] % (Auto) 7.1 Eos % (Auto) 0.2 Baso % (Auto) 0.3 Neut # (Auto) 24.97 H Lymph # (Auto) 2.2 [place] # (Auto) 2.1 H Eos # (Auto) 0.1 Baso # (Auto) 0.1 Nucleated RBC % (auto) 0 Nucleated RBCs # 0.0 PT 15.60 H INR 1.20 Sodium 137 Potassium 4.0 Chloride 93 L Carbon Dioxide 27 Anion Gap 21.0 H BUN 31 H Creatinine 0.5 GFR Calculation Not Reportable Glucose 145 H Calculated Osmolality 293 Lactate Calcium 8.4 L Magnesium 1.8 Total Bilirubin 0.2 AST 16 ALT 12 Alkaline Phosphatase 54 Total Protein 6.1 L Albumin 3.3 L Globulin 2.8 Urine Color Urine Appearance Urine pH Ur Specific [place] Urine Protein Urine Glucose (UA) Urine Ketones Urine Blood Urine Nitrate Urine Bilirubin Urine Urobilinogen Ur Leukocyte Esterase Urine RBC Urine WBC Ur Squamous Epith Cells Amorphous Sediment Urine Bacteria Urine Mucus Blood Type Rho(D) Type Antibody Screen Crossmatch 12/17/20 12/17/20 12/17/20 09:53 11:23 11:40 WBC RBC Hgb Hct MCV MCH MCHC RDW Plt Count MPV Neut % (Auto) Lymph % (Auto) [place] % (Auto) Eos % (Auto) Baso % (Auto) Neut # (Auto) Lymph # (Auto) [place] # (Auto) Eos # (Auto) Baso # (Auto) Nucleated RBC % (auto) Nucleated RBCs # PT INR Sodium Potassium Chloride Carbon Dioxide Anion Gap BUN Creatinine GFR Calculation Glucose Calculated Osmolality Lactate 1.0 Calcium Magnesium Total Bilirubin AST ALT Alkaline Phosphatase Total Protein Albumin Globulin Urine Color Yellow Urine Appearance Cloudy Urine pH 5 Ur Specific [place] 1.015 Urine Protein Trace Urine Glucose (UA) Norm Urine Ketones 1+ H Urine Blood 2+ H Urine Nitrate Negative Urine Bilirubin 1+ H Urine Urobilinogen 1 H Ur Leukocyte Esterase 2+ H Urine RBC 25-40 H Urine WBC >100 H Ur Squamous Epith Cells 5-10 H Amorphous Sediment Not Reportable Urine Bacteria 3+ H Urine Mucus 1+ Blood Type A Positive Rho(D) Type Positive / 4+ Antibody Screen Negative Crossmatch See Detail 12/17/20 12/17/20 12/17/20 12:16 14:30 20:44 WBC RBC Hgb 9.1 L 9.4 L 9.2 L Hct 30.2 L 31.1 L 30.6 L MCV MCH MCHC RDW Plt Count MPV Neut % (Auto) Lymph % (Auto) [place] % (Auto) Eos % (Auto) Baso % (Auto) Neut # (Auto) Lymph # (Auto) [place] # (Auto) Eos # (Auto) Baso # (Auto) Nucleated RBC % (auto) Nucleated RBCs # PT INR Sodium Potassium Chloride Carbon Dioxide Anion Gap BUN Creatinine GFR Calculation Glucose Calculated Osmolality Lactate Calcium Magnesium Total Bilirubin AST ALT Alkaline Phosphatase Total Protein Albumin Globulin Urine Color Urine Appearance Urine pH Ur Specific [place] Urine Protein Urine Glucose (UA) Urine Ketones Urine Blood Urine Nitrate Urine Bilirubin Urine Urobilinogen Ur Leukocyte Esterase Urine RBC Urine WBC Ur Squamous Epith Cells Amorphous Sediment Urine Bacteria Urine Mucus Blood Type Rho(D) Type Antibody Screen Crossmatch 12/18/20 12/18/20 03:21 03:21 WBC 26.2 H RBC 3.51 L Hgb 8.5 L Hct 28.8 L MCV 82.1 MCH 24.2 L MCHC 29.5 L RDW 16.0 H Plt Count 336 MPV 11.4 H Neut % (Auto) 80.9 Lymph % (Auto) 9.5 [place] % (Auto) 7.6 Eos % (Auto) 0.9 Baso % (Auto) 0.3 Neut # (Auto) 21.21 H Lymph # (Auto) 2.5 [place] # (Auto) 2.0 H Eos # (Auto) 0.2 Baso # (Auto) 0.1 Nucleated RBC % (auto) 0 Nucleated RBCs # 0.0 PT INR Sodium 135 L Potassium 3.2 L Chloride 97 L Carbon Dioxide 27 Anion Gap 14.2 BUN 20 Creatinine 0.5 GFR Calculation Not Reportable Glucose 105 Calculated Osmolality 283 L Lactate Calcium 8.3 L Magnesium Total Bilirubin 0.2 AST 36 H ALT 26 Alkaline Phosphatase 52 Total Protein 5.7 L Albumin 2.8 L Globulin 2.9 Urine Color Urine Appearance Urine pH Ur Specific [place] Urine Protein Urine Glucose (UA) Urine Ketones Urine Blood Urine Nitrate Urine Bilirubin Urine Urobilinogen Ur Leukocyte Esterase Urine RBC Urine WBC Ur Squamous Epith Cells Amorphous Sediment Urine Bacteria Urine Mucus Blood Type Rho(D) Type Antibody Screen Crossmatch Micro: Microbiology 12/17/20 11:40 Urine Culture - Preliminary Urine,Clean Catch Enterococcus species Cardiac Studies: No Data to Display
--- NOTE | 2020-12-18 09:35 | ANE.PACU2 ---
Inpatient post-anesthesia follow up: Airway intact: Yes Vital signs: Temperature 97.7 F Pulse Rate [Monito r] 125 Pulse Rate 103 Respiratory Rate 18 Blood Pressure [Le ft Arm] 122/58 Blood Pressure 138/55 Pulse Oximetry 94 Oxygen Delivery Me thod Room Air Oxygen Flow Rate 4 Fraction of Inspir ed Oxygen Hydration adequate: Yes Nausea and vomiting: No Pain level: 1 Mental status: Baseline
[2020-12-18] MEDS: pantoprazole 40 mg SDV IVP ×2 (10:00→22:48)
[2020-12-18] MEDS: sodium chlor 0.9% + KCl 40 mEq 40 MEQ/1,000 ML BAG 75 MEQ IV ×2 (10:00→23:39)
--- NOTE | 2020-12-18 12:35 | PM.PN ---
Subjective Subjective: Interval history: Patient seen resting in bed. Appears stated age of 75. Patient very hungry and anxious to eat. Raghunath was there she states she does not like apple juice or Jell-O. The other options were an [place] ice and coffee. She was not pleased with this offering. Medications: Reviewed: Yes Vitals/I&O/Wt Last Vital Signs Temp 97.8 F 12/18/20 10:51 Pulse 94 12/18/20 10:51 Resp 21 H 12/18/20 10:51 BP 113/50 12/18/20 10:51 Pulse Ox 97 12/18/20 10:51 12/17/20 12/18/20 12/18/20 22:59 06:59 14:59 Intake Total 110 / 220 50 / 270 100 / 100 Balance 110 / 220 50 / 270 100 / 100 Weight last 48 hrs Weight 54.431 kg Physical Exam Narrative: EXAM NARRATIVE: General: Alert and oriented. No acute distress. Heart: Normal S1-S2. No loud murmurs. Lungs: Diminished breath sounds throughout diminished expiratory phase. No wheezes rales or rhonchi Abdomen: Soft nontender nondistended normal bowel sounds Extremities: No clubbing cyanosis or edema Data : 12/18/20 03:21 12/18/20 03:21 Micro: Microbiology 12/17/20 11:40 Urine Culture - Preliminary Urine,Clean Catch Enterococcus species Attestation for Other Data: I personally reviewed and interpreted the following: Other data: CXR: hyperinflation. chronic appearing scarring left base and right mediatinal area. No active disease. A&P Assessment and plan (1) UTI (urinary tract infection): Enterococcus species. Sens pending. On Zosyn. Status: Acute (2) Aspiration into respiratory tract: suspected. But not seen on CXR. Will await Urine sensitivities to change abx. Status: Acute (3) Anemia due to blood loss: has NOT required transfusion Status: Acute (4) Gastritis: Per EGD today. On bid PPI IV Status: Acute (5) Hypokalemia: will give liquid replacement or powder Check Mag level Status: Acute Attestations Medical Necessity Statement*: Recent large volume hematemesis. Coding Level of Care Code Acute Reimbursement Manager for [facility] Diagnoses UTI (urinary tract infection) N39.0 Aspiration into respiratory tract T17.908A Anemia due to blood loss D50.0 Gastritis K29.70 Hypokalemia E87.6
[2020-12-18] MEDS: potassium chloride oral liq 20 mEq/15 mL UDC 40 MEQ PO (15:26)
[2020-12-19] VITALS (113 sets, daily range): BP systolic 102–149; BP diastolic 51–73; PULSE 83–112; RESP 12–35; TEMP 36.4–37.2; O2SAT 90–99
[2020-12-19] MEDS: ondansetron 2 mg/ML SDV 2 mL 4 MG IVP (02:55)
[2020-12-19 05:11] LABS: Blood Urea Nitrogen 6 mg/dL (8-23); Calcium 7.8 mg/dL (8.5-10.5); Carbon Dioxide 27 mmol/L (22-29); Chloride 104 mmol/L (98-107); Glucose 85 mg/dL (65-115); Magnesium 1.5 mg/dL (1.7-2.3); Osmolality Calculated 281 mOsm/kg (285-295); Sodium 137 mmol/L (136-145)
--- NOTE | 2020-12-19 05:19 | PC.NURSE ---
Spoke with Dr. Nicholson regarding this patient's lab orders not including a CBC this morning. Dr. Nicholson would like the attending to assess for the need for this exam.
[2020-12-19] MEDS: ipratropium-albuterol 3 mL Neb INHALATION ×4 (06:33→19:20)
[2020-12-19] MEDS: piperacillin-tazobactam 3.375 GM in sodium chloride 0.9% (plus) 50 ML IV (08:13)
[2020-12-19] MEDS: pantoprazole 40 mg SDV IVP ×2 (09:30→21:59)
[2020-12-19] MEDS: magnesium sulfate premix 4 GM/100 ML PREMIX IV (09:30)
[2020-12-19 09:39] LABS: Basophils % 0.3 %; Eosinophils # 0.3 10^3/uL (0.0-0.8); Eosinophils % 2.7 %; Hematocrit 23.7 % (37.0-47.0); Hemoglobin 7.1 g/dL (11.5-15.3); Lymphocytes # 1.8 10^3/uL (0.8-4.8); Lymphocytes % 14.6 %; Mean Corpuscular Hemoglobin 24.5 pg (28.0-34.0); Mean Corpuscular Volume 81.7 fL (81-99); Monocytes # 0.9 10^3/uL (0.2-0.9); Monocytes % 7.6 %; Neutrophils % 72.7 %; Nucleated Red Blood Cells % 0 %; Platelet Count 285 10^3/cmm (130-400); Red Cell Distribution Width 16.2 % (12.1-15.1); White Blood Count 12.4 10^3/uL (4.0-10.0)
--- NOTE | 2020-12-19 10:10 | PC.NURSE ---
PER DR. GUZMAN, PLEASE TRANSFUSE ONE UNIT OF PRBC'S THATS ALREADY ORDERED FOR HER HGB OF 7.1 THIS MORNING. PLEASE STOP IV FLUIDS AND ADD METAMUCIL FOR LOOSE BOWEL MOVEMENTS. WILL MONITOR PATIENT.
[2020-12-19] MEDS: sodium chloride 0.9% (100 ml) 100 ML (11:35)
[2020-12-19 11:41] LABS: H. Pylori / CLO Test Negative
--- NOTE | 2020-12-19 11:48 | P.PN_ITS ---
Subjective Subjective: Interval history: Patient seen resting in bed. Appears stated age of 75. more anxiety today, seen while having breathing treatment initially. Concerned about blood transfusion. Reassurance given by myself and RN denies diarrhea usually Medications: Reviewed: Yes Vitals/I&O/Wt Last Vital Signs Temp 98.6 F 12/19/20 11:30 Pulse 83 12/19/20 11:30 Resp 23 H 12/19/20 11:30 BP 106/55 12/19/20 11:30 Pulse Ox 96 12/19/20 11:30 12/18/20 12/19/20 12/19/20 22:59 06:59 14:59 Intake Total 650 / 1400 1050 / 2450 1153.75 / 1153.75 Balance 650 / 1400 1050 / 2450 1153.75 / 1153.75 Physical Exam Narrative: EXAM NARRATIVE: General: Alert and oriented. No acute distress. abit anxious Heart: Normal S1-S2. No loud murmurs. Lungs: Diminished breath sounds throughout diminished expiratory phase. No wheezes rales or rhonchi Abdomen: Soft nontender nondistended normal bowel sounds Extremities: No clubbing cyanosis or edema Data : 12/19/20 09:28 12/19/20 03:35 Micro: Microbiology 12/17/20 11:40 Urine Culture - Final Urine,Clean Catch Enterococcus faecium Sens to zyvox, vanco and dapto A&P Assessment and plan (1) UTI (urinary tract infection): Enterococcus. On zosyn. WBC improving. change to oral zyvox. Status: Acute (2) Aspiration into respiratory tract: suspected. But not seen on CXR. will not treat with anerobic therapy unless pt worsens. Status: Acute (3) Anemia due to blood loss: transfuse 1 unit PRBC today. Pt reluctant. Discussed physilogy and recommended transfusion. after explanation, pt agreeable. Status: Acute (4) Gastritis: On bid PPI IV. will discharge on bid for 2 months then likely d/c since etiology of gastritis is NSAID's and these have been discontinued. Status: Acute (5) Hypokalemia: Received replacement Magnesium level low. Given 4 gm IV today. Status: Acute (6) Diarrhea: Not bloody. will order fiber. Status: Acute Attestations Medical Necessity Statement*: requires blood transfusion and monitoring/testing of stoot Coding Level of Care Code Acute Welfare Supervisor for [facility] Diagnoses UTI (urinary tract infection) N39.0 Aspiration into respiratory tract T17.908A Anemia due to blood loss D50.0 Gastritis K29.70 Hypokalemia E87.6 Diarrhea R19.7
[2020-12-19] MEDS: linezolid 600 mg Tablet PO ×2 (13:23→23:15)
[2020-12-19] MEDS: psyllium powder Pkt 1 PACKET PO (17:17)
[2020-12-20] VITALS (116 sets, daily range): BP systolic 108–162; BP diastolic 51–95; PULSE 77–110; RESP 12–39; TEMP 36.6–37.2; O2SAT 89–100
[2020-12-20] MEDS: ipratropium-albuterol 3 mL Neb INHALATION ×4 (02:00→20:37)
[2020-12-20] MEDS: psyllium powder Pkt 1 PACKET PO (09:32)
--- NOTE | 2020-12-20 10:42 | DCPLANNER ---
IMM completed with pt on 12/20/20 @ 0994. Copy of rights given to pt.
[2020-12-20] MEDS: pantoprazole 40 mg SDV IVP (10:46)
[2020-12-20] MEDS: linezolid 600 mg Tablet PO ×2 (11:50→23:14)
--- NOTE | 2020-12-20 13:44 | PC.NURSE ---
Patient has been anxious this morning and has been verbally aggressive. I told the patient that we needed to sit up to eat to prevent her from choking instead of laying the food on her lap, patient said I can't wait to get the F out of here and away from you people. Patient then politely asked me to open her milk for her after using derogatory language prior. Patient has stated that she is short of breath and needs a breathing treatment several times today, even after receiving one this morning. Her oxygen saturation has been in the 90's. has been notified regarding patients anxiety. Nurse will continue to monitor patient.
--- NOTE | 2020-12-20 13:46 | PC.RESP ---
PULMONARY REHAB INFORMATION SENT TO PATIENT.
[2020-12-20] MEDS: FUROsemide 20 mg Tablet PO (15:18)
[2020-12-20] MEDS: gabapentin 100 mg Capsule PO ×2 (15:46→20:36)
[2020-12-20 16:15] LABS: Hematocrit 30.3 % (37.0-47.0); Hemoglobin 9.4 g/dL (11.5-15.3)
[2020-12-20] MEDS: LORazepam 0.5 mg Tablet PO (17:38)
--- NOTE | 2020-12-20 17:46 | P.PN_ITS ---
Subjective Subjective: Interval history: Hemoglobin at 7.1 this morning. No dyspnea, reports anxiety, home doses of psych medications and lorazepam resume today. Tolerating oral intake. No further episodes of hematemesis or melena. Medications: Reviewed: Yes Vitals/I&O/Wt Last Vital Signs Temp 98.7 F 12/20/20 12:00 Pulse 98 12/20/20 16:55 Resp 24 H 12/20/20 16:55 BP 108/81 12/20/20 16:55 Pulse Ox 100 12/20/20 16:55 12/20/20 12/20/20 12/20/20 06:59 14:59 22:59 Intake Total 450 / 2553.75 300 / 300 Balance 450 / 2553.75 300 / 300 Physical Exam Narrative: EXAM NARRATIVE: General: No acute distress, AO x3 HEENT: PERRLA, pupils bilaterally equal and reactive, pallors present, NGT to suction Chest: Normal vesicular breath sounds, no added sounds, equal good air entry quinn aterally CVS: S1-S2 regular, no murmurs, no tachycardia, no gallops, no rubs Abdomen: Soft, nontender, no organomegaly, bowel sounds present Neuro: No focal deficits, no facial deformity, AO x3, power 5/5 in all limbs Extremities: no edema, cyanosis or clubbing Data : 12/20/20 15:54 12/19/20 03:35 A&P Assessment and plan (1) Anemia due to blood loss: Hemoglobin dropped to 7.1 this morning, no active melena or hematemesis. Recheck hemoglobin this afternoon at 4 PM. transfuse if Hb <7 currently with tachycardia, BP stable, no dizziness or LOC Continue to hold Eliquis and Plavix Status: Acute (2) Coffee ground emesis: EGD findings noted protonix 40mg iv q12h ---> changed to 40 mg p.o. every 12 noted patient t olerating oral intake patient is on Eliquis for h/o DVT/PE and Plavix, both of which are on hold cur rently she has received K centra in the ER x 1 Tolerating GI soft diet at this present time Discontinue IV fluids Resume home dose of p.o. Lasix 20 mg daily, resume budesonide inhalation twice daily, resume home dose of metoprolol 12.5 mg p.o. twice daily given tachycardia. Patient reports anxiety, resume home doses of lorazepam and mirtazapine at nighttime. Status: Acute (3) Aspiration into respiratory tract: B/L LL consolidation , leukocytosis is much improved, less likely to be credit resolution representative of pneumonia, may have been contributed by hemoconcentration upon admission Leukocytosis may be 2/2 hemoconecntration, however in the presence of B/L infiltrates and positive UA, cannot exclude infection Status: Acute (4) UTI (urinary tract infection): + UA, leukocytosis Urine culture with Enterococcus PCM, resistant to ampicillin, currently on linezolid 600 p.o. every 12, duration of treatment to be 5 days total. 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
[2020-12-20] MEDS: pantoprazole DR 40 mg Tablet PO (18:35)
--- NOTE | 2020-12-20 18:48 | PC.NURSE ---
Patient has grown more hateful throughout the day. Pt strongly refuses to be turned or sat up in the bed any higher than about 20 degrees. Patient has been educated on the risk for skin breakdown with out position changes and still continues to refuse to turn to either side.
--- NOTE | 2020-12-20 18:51 | PC.NURSE ---
Pt refused to take her meta mucil tonight and said I don't need that stuff, it doesnt do anything for me.
--- NOTE | 2020-12-20 20:07 | PC.NURSE ---
Received bedside report from ROD Maloney. Patient resting in bed watching tv. Patient yells out inappropriately at times. Cleaned patient. Patient had small amount of black tarry stools. Patient denies pain at this time. No other distress observed.
[2020-12-20] MEDS: metoprolol tartrate 25 mg Tablet 12.5 MG PO (20:36)
[2020-12-20] MEDS: mirtazapine 15 mg Tablet 7.5 MG PO (20:36)
[2020-12-20] MEDS: budesonide 0.5 mg/2 mL Neb INHALATION (20:37)
--- NOTE | 2020-12-20 23:20 | PC.NURSE ---
Administered scheduled medication at this time. Patient hateful and yelling. Cleaned patient due to incontinence. Patient refuses to help with turning and refuses to be turned to alternating postions.
[2020-12-21] VITALS (15 sets, daily range): BP systolic 126–158; BP diastolic 65–78; PULSE 82–105; RESP 17–28; TEMP 36.6–37.1; O2SAT 93–98
[2020-12-21] MEDS: ipratropium-albuterol 3 mL Neb INHALATION ×4 (02:05→15:41)
--- NOTE | 2020-12-21 06:25 | PC.NURSE ---
Patient clean and dry at this time.
[2020-12-21] MEDS: budesonide 0.5 mg/2 mL Neb INHALATION (07:24)
[2020-12-21] MEDS: metoprolol tartrate 25 mg Tablet 12.5 MG PO (07:59)
[2020-12-21] MEDS: pantoprazole DR 40 mg Tablet PO (07:59)
[2020-12-21] MEDS: FUROsemide 20 mg Tablet PO (08:00)
[2020-12-21] MEDS: gabapentin 100 mg Capsule PO (08:00)
--- NOTE | 2020-12-21 11:49 | PM.DCS ---
Discharge Providers Date of Admission: 12/17/20 13:47 Date of Discharge: December 21, 2020 Attending Provider at Admission: Kim Magallanes MD Attending Provider at Discharge: Kim Magallanes MD Primary Care Provider: Fanny Devlin MD, [facility] [place] Diagnoses at Discharge Discharge Diagnosis (1) Anemia due to blood loss: Status: Acute (2) Coffee ground emesis: Status: Acute (3) Aspiration into respiratory tract: Status: Acute (4) UTI (urinary tract infection): Status: Acute Reason for Visit Reason for Visit: NAUSEA/ BLACK TARRY VOMIT Hospital Course Hospital Course Jenifer Schwartz is a 75 year old female sent from [facility] on 12/17 after being noted to have several episodes of hematemesis starting overnight, described as coffee ground emesis. She received Kcentra upon admission as she has been on Eliquis. Underwent UGIE on 12/18/20 which showed esophagitis, moderate amount of coffee ground material was noted in the stomach, no bleeding identified. Biopsy for H.pylori was taken and pending at discharge. 1 unit of packed red blood cells were transfused on December 20, 2019. Hemoglobin at discharge is at 9.4. Patient's Eliquis and Plavix have been discontinued at the time of discharge, resumption of Plavix may be reassessed at the half-way. Hospital course also notable for urinary tract infection, urine culture with Enterococcus fecium, received treatment with linezolid 600 mg p.o. twice daily. Afberile, hemodynamically stable at discharge. 02 requirement at baseline of 4lpm Physical Exam Narrative: EXAM NARRATIVE: GEN: Awake, alert, no acute distress CVS: S1S2 N RS: CTA B/L Abd: Soft, nt/nd , bs+ TARGETEER: no focal neuro deficits Discharge Data Data Completed and Pending: Completed Studies During Hospitalization Category Date Time Status CT abdomen pelvis w con* [id number] Urge nt Cat Scan 12/17/20 10:09 Completed XR chest 1V nasima ble [id number] Stat Exams 12/17/20 13:25 Completed Labs from last 24 hours 12/20/20 12/17/20 15:54 09:53 Hgb 9.4 L Hct 30.3 L Crossmatch See Detail Addt'l Data from Hospital Stay: Laboratory Results WBC 12.4 10^3/uL (4.0 -10.0) H 12/19/20 09:28 RBC 2.90 10^6/uL (4.1 -5.3) L 12/19/20 09:28 Hgb 9.4 g/dL (11.5-15 .3) L 12/20/20 15:54 Hct 30.3 % (37.0-47.0 ) L 12/20/20 15:54 MCV 81.7 fL (81-99) 12/19/20 09:28 MCH 24.5 pg (28.0-34. 0) L 12/19/20 09: MCHC 30.0 g/dL (30.0-3 6.0) 12/19/20 09: RDW 16.2 % (12.1-15.1 ) H 12/19/20 09: Plt Count 285 10^3/cmm (130 -400) 12/19/20 09: MPV 11.0 fL (7.4-10.4 ) H 12/19/20 09: Neut % (Auto) 72.7 % 12/19/20 09: Lymph % (Auto) 14.6 % 12/19/20 09: [place] % (Auto) 7.6 % 12/19/20 09: Eos % (Auto) 2.7 % 12/19/20 09: Baso % (Auto) 0.3 % 12/19/20 09: Neut # (Auto) 9.00 10^3/uL (1.8 -7.7) H 12/19/20 09: Lymph # (Auto) 1.8 10^3/uL (0.8- 4.8) 12/19/20 09:28 [place] # (Auto) 0.9 10^3/uL (0.2- 0.9) 12/19/20 09: Eos # (Auto) 0.3 10^3/uL (0.0- 0.8) 12/19/20: Baso # (Auto) 0.0 10^3/uL (0.0- 0.1) 12/19/20 09: Nucleated RBC % (a uto) 0 % 12/19/20 09: Nucleated RBCs # 0.0 /100WBC 12/19/20 09: PT 15.60 SECONDS (12 .1-14.9) H 12/17/20 09:25 INR 1.20 (0.8-1.2) 12/17/20 09:25 Sodium 137 mmol/L (136-1 45) 12/19/20 03:35 Potassium 4.0 mmol/L (3.5-5 .1) 12/19/20 03:35 Chloride 104 mmol/L (98-10 7) 12/19/20 03:35 Carbon Dioxide 27 mmol/L (22-29) 12/19/20 03:35 Anion Gap 10.0 (5-19) 12/19/20 03:35 BUN 6 mg/dL (8-23) L 12/19/20 03:35 Creatinine 0.4 mg/dL (0.5-0. 9) L 12/19/20 03:35 GFR Calculation Not Reportable 12/19/20 03:35 Glucose 85 mg/dL (65-115) 12/19/20 03:35 Calculated Osmolal ity 281 mOsm/kg (285- 295) L 12/19/20 03:35 Lactate 1.0 mmol/L (0.5-2 .2) 12/17/20 11:23 Calcium 7.8 mg/dL (8.5-10 .5) L 12/19/20 03:35 Magnesium 1.5 mg/dL (1.7-2. 3) L 12/19/20 03:35 Total Bilirubin 0.2 mg/dL (0.15-1 .2) 12/18/20 03:21 AST 36 U/L (0-32) H 12/18/20 03:21 ALT 26 U/L (0-33) 12/18/20 03:21 Alkaline Phosphata se 52 IU/L (35-105) 12/18/20 03:21 Total Protein 5.7 g/dL (6.6-8.7 ) L 12/18/20 03:21 Albumin 2.8 g/dL (3.5-5.2 ) L 12/18/20 03:21 Globulin 2.9 g/dL (1.3-4.6 ) 12/18/20 03:21 Urine Color Yellow (Yellow) 12/17/20 11:40 Urine Appearance Cloudy (CLEAR) 12/17/20 11:40 Urine pH 5 (5-7) 12/17/20 11:40 Ur Specific Gravit y 1.015 (1.005-1.0 30) 12/17/20 11:40 Urine Protein Trace (Negative) 12/17/20 11:40 Urine Glucose (UA) Norm (Normal) 12/17/20 11:40 Urine Ketones 1+ (Negative) H 12/17/20 11:40 Urine Blood 2+ (Negative) H 12/17/20 11:40 Urine Nitrate Negative (Negati ve) 12/17/20 11:40 Urine Bilirubin 1+ (Negative) H 12/17/20 11:40 Urine Urobilinogen 1 mg/dL (Negative ) H 12/17/20 11:40 Ur Leukocyte Sharlene ase 2+ (Negative) H 12/17/20 11:40 Urine RBC 25-40 /hpf (0-2) H 12/17/20 11:40 Urine WBC >100 /hpf (0-5) H 12/17/20 11:40 Ur Squamous Epith Cells 5-10 /hpf (0-5) H 12/17/20 11:40 Amorphous Sediment Not Reportable 12/17/20 11:40 Urine Bacteria 3+ /hpf (NONE) H 12/17/20 11:40 Urine Mucus 1+ /hpf 12/17/20 11:40 H. pylori IgG Anti body Negative 12/19/20 09:28 Blood Type A Positive 12/17/20 09:53 Rho(D) Type Positive / 4+ 12/17/20 09:53 Antibody Screen Negative 12/17/20 09:53 Crossmatch See Detail 12/17/20 09:53 Impressions Abdomen/Pelvis CT 12/17/20 10:09 IMPRESSION: 1. Small bilateral pleural effusions with compressive atelectasis in the lung bases. Subtotal consolidation left lower lobe. Recommend correlation for pneumonia. 2. Marked fluid distention of the stomach with air-fluid levels and increased attenuation blood products. No free air or perforation. Reported history of hematemesis 3. Fluid-filled normal caliber proximal duodenum and proximal small bowel loops with a few air-fluid levels. 4. Rectus sheath diastases with ventral abdominal wall laxity. A few abutting small bowel loops in this area. Adhesions in this area may be contributing to partial proximal small bowel obstruction. 5. Distal small bowel and colon are normal in appearance. 6. Marked urinary distention of the bladder. Notified Ana María Toribio MD at 12/17/2020 11:39 AM. Chest X-Ray 12/17/20 13:25 IMPRESSION: Bilateral lower lobe consolidation and pleural effusions. Vitals: Last Vital Signs Temp 98.4 F 12/21/20 10:59 Pulse 82 12/21/20 10:59 Resp 18 12/21/20 10:59 BP 126/65 12/21/20 10:59 Pulse Ox 97 12/21/20 10:59 Discharge Plan Discharge Patient Disposition: er [facility] Condition: Stable Prescriptions: Continued multivitamin Tablet 1 tab PO DAILY@0800 RF: 0 acetaminophen [Tylenol] 325 mg Tablet 650 mg PO QID PRN (Reason: Pain) RF: 0 ipratropium-albuterol 0.5 mg-3 mg(2.5 mg base)/3 mL Solution For Nebulization 3 ml INHALATION Q4H PRN (Reason: Shortness Of Breath) RF: 0 albuterol sulfate 2.5 mg /3 mL (0.083 %) Solution For Nebulization 2.5 mg INHALATION Q4H PRN (Reason: Shortness Of Breath) RF: 0 hydrocodone-acetaminophen 5-325 mg Tablet 1 tab PO Q6H PRN (Reason: Pain) RF: 0 ondansetron HCl [Zofran] 4 mg Tablet 4 mg PO Q8H PRN (Reason: Nausea) RF: 0 Senna-S 8.6-50 mg Tablet 1 tab-cap PO BID PRN (Reason: Constipation) RF: 0 potassium chloride 10 mEq Tablet Extended Release 10 meq PO DAILY@0800 RF: 0 simvastatin 40 mg Tablet 40 mg PO DAILY@1999 RF: 0 lorazepam 0.5 mg Tablet 0.5 mg PO Q4H PRN (Reason: Anxiety) RF: 0 Enema Disposable 19-7 gram/118 mL Enema 118 ml AK DAILY PRN (Reason: Constipation) RF: 0 furosemide [Lasix] 20 mg Tablet 20 mg PO DAILY@0800 RF: 0 gabapentin 100 mg Capsule 100 mg PO TID@0800,1600,1999 RF: 0 Miralax 17 gram/dose Powder 17 g PO DAILY PRN (Reason: Constipation) RF: 0 TwoCal HN Liquid 30 ea PO BID RF: 0 metoprolol tartrate 25 mg Tablet 12.5 mg PO BID@ RF: 0 mirtazapine 7.5 mg Tablet 7.5 mg PO DAILY@1999 RF: 0 budesonide-formoterol [Symbicort] 160-4.5 mcg/actuation Hfa Aerosol Inhaler 2 puff INHALATION BID@799,1999 RF: 0 Biofreeze 0.2-3.5 % Gel 1 applic TOPICAL TID PRN (Reason: Pain) RF: 0 Changed pantoprazole 40 mg Tablet,Delayed Release (Dr/Ec) 40 mg PO BID Qty: 0 RF: 0 Discontinued clopidogrel [Plavix] 75 mg Tablet 75 mg PO DAILY@08 RF: 0 Milk of Magnesia 400 mg/5 mL Suspension 30 ml PO DAILY PRN (Reason: Constipation) RF: 0 bisacodyl 10 mg Suppository 10 mg AK DAILY PRN (Reason: Constipation) RF: 0 Eliquis 5 mg Tablet 5 mg PO BID@ RF: 0 Discharge Orders: Discharge Order (Routine); Ordered 12/21/20 Ordered By: Kim aMgallanes Referrals: Arsen Brannon MD [Physician] - 1 week Fanny Devlin MD, [facility] [place] [Primary Care Provider] - 4-7 days Discharge Diet: Advance as tolerated and GI Soft Discharge Activity: Resume usual activity Patient Instructions: GI Discharge Instructions Discharge Attestations Time Spent in Discharge Care*: greater than 30 min Quality Metrics Clinical Quality Measures During this hospital stay, did patient experience: None Coding Level of Care Code Acute Chg FW DC note Diagnoses Anemia due to blood loss D50.0 Coffee ground emesis K92.0 Aspiration into respiratory tract T17.908A UTI (urinary tract infection) N39.0
[2020-12-21 15:14] LABS: SARS Covid-2 Antigen Negative (Negative)
== END 2020-12-21 16:45 | disposition skilled nursing facility (03) | DRG 812 ==
LOC: ER 14:22 → CSU 17:00
PROVIDERS: Internal Medicine; Surgery; Admitting Provider Student in an Organized Health Care Education/Training Program; Emergency Provider Family Medicine; PCP Family Medicine; Visit Provider Student in an Organized Health Care Education/Training Program
PROC: 0DJ08ZZ Inspection of Upper Intestinal Tract, Via Natural or Artificial Opening Endoscopic (ICD-10-PCS; CPT 43235; principal; 2020-12-18 09:45)
DX: D62 Acute posthemorrhagic anemia (principal); K92.0 Hematemesis; I50.42 Chronic combined systolic (congestive) and diastolic (congestive) heart failure; N39.0 Urinary tract infection, site not specified; Z16.11 Resistance to penicillins; Z86.711 Personal history of pulmonary embolism; Z86.718 Personal history of other venous thrombosis and embolism; I11.0 Hypertensive heart disease with heart failure; I25.10 Atherosclerotic heart disease of native coronary artery without angina pectoris; I25.2 Old myocardial infarction; M19.90 Unspecified osteoarthritis, unspecified site; F03.90 Unspecified dementia, unspecified severity, without behavioral disturbance, psychotic disturbance, mood disturbance, and anxiety; F32.9 Major depressive disorder, single episode, unspecified; E11.42 Type 2 diabetes mellitus with diabetic polyneuropathy; Z87.891 Personal history of nicotine dependence; Z86.16 Personal history of COVID-19; T17.918A Gastric contents in respiratory tract, part unspecified causing other injury, initial encounter; K20.90 Esophagitis, unspecified without bleeding; B95.2 Enterococcus as the cause of diseases classified elsewhere; E87.6 Hypokalemia; R19.7 Diarrhea, unspecified; F41.9 Anxiety disorder, unspecified; K29.70 Gastritis, unspecified, without bleeding; T39.395A Adverse effect of other nonsteroidal anti-inflammatory drugs [NSAID], initial encounter
CPT/HCPCS: 12345; 36415; 36430; 43239; 51701; 71045; 74177; 80048; 80053; 81001; 83605; 83735; 85014; 85018; 85025; 85610; 86850; 86900; 86920; 87077; 87086; 87186; 87426; 93005; 94640; 96365; 96375; 97161; 99285; C9113; J2405; J2543; J2704; J3475; J7030; J7168; J7611; J7626; P9016; Q9967

== ENCOUNTER 2020-12-28 10:40 | Inpatient (IN) | payer MEDICARE, OTHER, MEDICAID, SELFPAY ==
[2020-12-28] VITALS (13 sets, daily range): BP systolic 102–140; BP diastolic 47–70; PULSE 95–110; RESP 16–20; TEMP 36.6–37.4; O2SAT 93–98; BMI 23.3
--- NOTE | 2020-12-28 10:44 | ECG_ITS ---
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1945 Requested By: Jimbo Gold Order Number: [id number] Reading MD: ABRAM TELLO Measurements Intervals [place] Rate: 105 P: 76 AR: 171 QRS: -31 QRSD: 68 T: 69 QT: 340 QTc: 451 Interpretive Statements SINUS TACHYCARDIA LEFT AXIS DEVIATION [QRS AXIS < -30] LOW QRS VOLTAGE IN PRECORDIAL LEADS [QRS DEFLECTION < 1.0 mV IN CHEST LEADS] PATTERN CONSISTENT WITH PULMONARY DISEASE Compared to ECG 12/17/2020 09:43:21 Low QRS voltage now present Electronically Signed On 12-28-2020 20:16:47 CDT by ABRAM TELLO [id number]
--- NOTE | 2020-12-28 10:51 | CT_ITS ---
WS: [id number] CT ABDOMEN AND PELVIS WITH CONTRAST HISTORY: Abdominal pain and coffee-ground emesis. TECHNIQUE: Imaging performed of the abdomen and pelvis with IV contrast. Single phase imaging of the abdomen. Coronal and sagittal reformats are submitted. All CT scans at [facility] use at least one of these dose optimization techniques: automated exposure control; mA and/or kV adjustment per patient size (includes targeted exams where dose is matched to clinical indication); or iterativ e reconstruction. IV CONTRAST: Omnipaque 300; 95 mL IV. Oral contrast: No DLP: 1183.44 mGy.cm COMPARISON: 12/17/2020 Lower thorax: Chronic emphysematous changes at the lung bases with small bilateral pleural effusions. Mild compressive atelectasis at the lung bases. Heart is normal size. There is a small hiatal hernia . Fluid in the distal esophagus from reflux disease. Liver/biliary system: Normal size with no intrahepatic dilatation. Gallbladder: Normal. No gallstones or wall thickening. No pericholecystic fluid. Pancreas: Small caliber pancreas is being compressed and displaced by the enlarged stomach. There is a cystic area measuring 1 cm in the mid pancreatic body which may be related to IPMN. Spleen: Normal. Adrenal glands: Normal. Right kidney: Normal. Left kidney: Normal. Aorta: Moderate atherosclerosis with no aneurysm. Severe atherosclerotic plaque extends into the berna c arteries bilaterally. Lymphadenopathy: None. Free fluid: None. GI tract: There is marked fluid distention of the stomach. Similar to the prior study with no improve ment. Duodenal C-loop is not well visualized otherwise. Cause for the obstruction is not apparent. Sm all bowel loops demonstrate mild fluid distention. Increased fecal material air throughout the colon. Abdominal wall: Ventral wall laxity. There is no herniation of bowel loops or evidence for obstructio n due to the abdominal wall. Pelvis: Normal. Bones: Osteopenia with numerous compression fractures in the lumbar spine. ORIF in each hip. CT/CT abdomen pelvis w con* [id number] IMPRESSION: 1. Severe distention of the stomach with fluid and air. This may be due to gas troparesis. The duodenal C-loop is not well visualized. Obstructing lesion is n ot evident but should be considered as a possible etiology. There is no ischemi c change. 2. Mild constipation. 3. No free air or free fluid. 4. Small bilateral pleural effusions with minimal increase in size since the p rior study. 5. Osteopenia with numerous compression fractures. 6. Fluid in the distal esophagus from reflux disease.
--- NOTE | 2020-12-28 10:51 | W.ED.ABDPA2 ---
HPI - Abdominal Pain General: Chief Complaint: GI Bleed Stated Complaint: COFFEE GROUND EMESIS Time Seen by Provider: 12/28/20 10:41 History of Present Illness: HPI narrative: 75-year-old female presents emergency room with complaint of weakness, abdominal distention, coffee-ground emesis. Patient relates she has had bloating in her abdomen for 2 weeks. EMS reported coffee-ground emesis at the [facility] when they arrived to transport. prison had done a abdominal film that was read as having free air. On arrival here she was noted to have a little bit of bright red blood on the lips. She denies any abdominal pain. She had some emesis at the [facility] no diarrhea. He was hypotensive as well. She has history of GI bleeds. MD elicited complaint: abdominal pain Pertinent past history: gastrointestinal bleeding Onset (ago): hour(s) Location: None Exacerbating factors: nothing Relieving factors: nothing Associated Symptoms: Reports bloating, change in bowel habits, change in stool character, coffee ground emesis, dyspepsia, nausea, poor appetite and vomiting; Denies anorexia, belching, chills, constipation, GI cramping, diarrhea, dysuria, excessive flatus, fever(s), heartburn, hematochezia, hematuria, hematemesis, fecal incontinence, loose stools, melena and syncope Review of Systems Const: Denies: fever(s) or chills Card: Denies: syncope Resp: Denies: dyspnea, productive cough or non-productive cough GI: Reports: nausea, vomiting, coffee ground emesis, bloating, change in bowel habits and change in stool character; Denies: hematemesis, heartburn, diarrhea, constipation, GI cramping, belching, excessive flatus, fecal incontinence, hematochezia or melena : Denies: dysuria or hematuria Skin/Breast: Denies: rash or pruritus PFS ED PFSH: Medical History (Updated 12/30/20 @ 05:52 by Jimbo Calvo DO) Ataxia Congestive heart failure Chronic combined systolic/diastolic COPD (chronic obstructive pulmonary disease) Coronary artery disease / ID COVID-19 Aug 2020 Degenerative joint disease Dementia Depression DVT (deep venous thrombosis) Hypertension Neuropathy Pulmonary embolism Type 2 diabetes mellitus Surgical History (Updated 12/29/20 @ 17:28 by Bartolo Rodriguez MD) H/O esophagogastroduodenoscopy History of primary section x 3 Status post hip surgery Bilateral hip fractures Social History Smoking and tobacco status: former smoker Quit status (tobacco): has quit using tobacco Year quit tobacco: 2016 Former quit date comment: [id number] history previously Alcohol intake: never Physical Exam Const: ORIENTATION/CONSCIOUSNESS: Yes oriented to person, Yes oriented to place and Yes oriented to time HENMT: COMMON NORMALS: normocephalic and atraumatic HEAD & SCALP: normocephalic and atraumatic Neck/C-Spine: COMMON NORMALS: no JVD Resp: COMMON NORMALS: normal respiratory effort, No retractions, No use of accessory muscles and clear to auscultation bilaterally AUSCULTATION: clear to auscultation bilaterally Cardio: COMMON NORMALS: no JVD, regular rate, regular rhythm and No murmurs present (Cardio) RATE: regular rate RHYTHM: regular rhythm GI: COMMON NORMALS: Soft to palpation and No hepatosplenomegaly present INSPECTION: Yes abdominal distension AUSCULTATION: Yes Hypoactive bowel sounds present PALPATION: Yes Soft to palpation, No Tenderness to palpation present (GI), No Guarding due to palpation present (GI) and Yes No hepatosplenomegaly present PERCUSSION: tympanic to percussion RECTAL EXAM: heme positive stool Extremity: COMMON NORMALS: normal to inspection, capillary refill normal, no clubbing, cyanosis or edema, no calf tenderness and no pedal edema Neuro: SENSORIUM/ORIENTATION: Yes oriented to person, Yes oriented to place and Yes oriented to time Skin: COMMON NORMALS: no rashes or lesions noted GENERAL SKIN EXAM: no rashes or lesions noted Course Vital Signs: Vital signs: Vital Signs Temperature 98.3 F 12/30/20 04:00 Pulse Rate 93 12/30/20 04:00 Respiratory Rate 18 12/30/20 04:00 Blood Pressure 112/71 12/30/20 04:00 Pulse Oximetry 92 12/30/20 04:00 MDM - Abdominal Pain MDM Narrative: Medical decision making narrative: Acute upper GI bleed with hematemesis and heme positive stools. Will admit discussed with Dr. Castillo patient will need transfusion. Lab Data: Attestation: I reviewed the patient's lab results. Labs: Lab Results 12/28/20 12/28/20 12/28/20 Range/Units 11:00 11:00 11:43 WBC 18.1 H (4.0-10.0) 10^3/ uL RBC 2.59 L (4.1-5.3) 10^6/u L Hgb 6.4 L* (11.5-15.3) g/dL Hct 21.9 L (37.0-47.0) % MCV 84.6 (81-99) fL MCH 24.7 L (28.0-34.0) pg MCHC 29.2 L (30.0-36.0) g/dL RDW 17.4 H (12.1-15.1) % Plt Count 306 (130-400) 10^3/c mm MPV 11.2 H (7.4-10.4) fL Neut % (Auto) 81.9 % Lymph % (Auto) 9.3 % [place] % (Auto) 7.8 % Eos % (Auto) 0.2 % Baso % (Auto) 0.3 % Neut # (Auto) 14.81 H (1.8-7.7) 10^3/u L Lymph # (Auto) 1.7 (0.8-4.8) 10^3/u L [place] # (Auto) 1.4 H (0.2-0.9) 10^3/u L Eos # (Auto) 0.0 (0.0-0.8) 10^3/u L Baso # (Auto) 0.1 (0.0-0.1) 10^3/u L Nucleated RBC % (a uto) 0 % Nucleated RBCs # 0.0 /100WBC Sodium 133 L (136-145) mmol/L Potassium 4.3 (3.5-5.1) mmol/L Chloride 98 (98-107) mmol/L Carbon Dioxide 28 (22-29) mmol/L Anion Gap 11.3 (5-19) BUN 19 (8-23) mg/dL Creatinine 0.4 L (0.5-0.9) mg/dL GFR Calculation Not Reportable Glucose 136 H (65-115) mg/dL Calculated Osmolal ity 280 L (285-295) mOsm/k g Calcium 7.7 L (8.5-10.5) mg/dL Magnesium 2.0 (1.7-2.3) mg/dL Total Bilirubin 0.2 (0.15-1.2) mg/dL AST 11 (0-32) U/L ALT 13 (0-33) U/L Alkaline Phosphata se 47 (35-105) IU/L Total Protein 5.6 L (6.6-8.7) g/dL Albumin 2.7 L (3.5-5.2) g/dL Globulin 2.9 (1.3-4.6) g/dL Lipase 22 (13-60) U/L Urine Color Yellow (Yellow) Urine Appearance Cloudy (CLEAR) Urine pH 5 (5-7) Ur Specific Gravit y 1.020 (1.005-1.030) Urine Protein Neg (Negative) Urine Glucose (UA) Norm (Normal) Urine Ketones Negative (Negative) Urine Blood Neg (Negative) Urine Nitrate Negative (Negative) Urine Bilirubin Neg (Negative) Urine Urobilinogen Norm (Negative) mg/dL Ur Leukocyte Sharlene ase 2+ H (Negative) Urine RBC None (0-2) /hpf Urine WBC 55-80 H (0-5) /hpf Ur Squamous Epith Cells 0-4 H (0-5) /hpf Amorphous Sediment Not Reportable Urine Bacteria 3+ H (NONE) /hpf Discharge Plan Discharge Patient Disposition: Admitted As Inpatient Admit Provider: Dima Castillo Clinical Impression: Acute upper GI bleed, COPD (chronic obstructive pulmonary disease), Type 2 diabetes mellitus, Congestive heart failure Condition: Stable Coding Level of Care Code ED Well Services Operator for g Fwd Exam Comprehensive
[2020-12-28] MEDS: iohexol 300 mg/mL 100 mL Btl IV (11:08)
[2020-12-28 11:13] LABS: Basophils # 0.1 10^3/uL (0.0-0.1); Basophils % 0.3 %; Eosinophils % 0.2 %; Hematocrit 21.9 % (37.0-47.0); Lymphocytes # 1.7 10^3/uL (0.8-4.8); Lymphocytes % 9.3 %; Mean Corpuscular HGB Conc 29.2 g/dL (30.0-36.0); Mean Corpuscular Hemoglobin 24.7 pg (28.0-34.0); Mean Corpuscular Volume 84.6 fL (81-99); Mean Platelet Volume 11.2 fL (7.4-10.4); Monocytes # 1.4 10^3/uL (0.2-0.9); Monocytes % 7.8 %; Neutrophils # 14.81 10^3/uL (1.8-7.7); Neutrophils % 81.9 %; Nucleated Red Blood Cells % 0 %; Platelet Count 306 10^3/cmm (130-400); Red Blood Count 2.59 10^6/uL (4.1-5.3); Red Cell Distribution Width 17.4 % (12.1-15.1); White Blood Count 18.1 10^3/uL (4.0-10.0)
[2020-12-28 11:28] LABS: Alanine Aminotransferase 13 U/L (0-33); Albumin Level 2.7 g/dL (3.5-5.2); Alkaline Phosphatase 47 IU/L (35-105); Anion Gap 11.3 (5-19); Aspartate Amino Transferase 11 U/L (0-32); Blood Urea Nitrogen 19 mg/dL (8-23); Calcium 7.7 mg/dL (8.5-10.5); Carbon Dioxide 28 mmol/L (22-29); Chloride 98 mmol/L (98-107); Globulin 2.9 g/dL (1.3-4.6); Glucose 136 mg/dL (65-115); Lipase 22 U/L (13-60); Osmolality Calculated 280 mOsm/kg (285-295); Potassium 4.3 mmol/L (3.5-5.1); Sodium 133 mmol/L (136-145); Total Bilirubin 0.2 mg/dL (0.15-1.2); Total Protein 5.6 g/dL (6.6-8.7)
[2020-12-28 11:42] LABS: Slide Review Slide Review Perform
[2020-12-28 11:43] LABS: Hemoglobin 6.4 g/dL (11.5-15.3)
[2020-12-28] MEDS: sodium chloride 0.9% 1,000 ML 999 ML IV (11:44)
[2020-12-28] MEDS: ondansetron 2 mg/ML SDV 2 mL 4 MG IVP (11:44)
[2020-12-28] MEDS: pantoprazole 40 mg SDV IVP (11:53)
[2020-12-28 12:03] LABS: Add Urine Microscopic? YES; Bilirubin Urine Neg (Negative); Blood Urine Neg (Negative); Glucose Urine UA Norm (Normal); Ketones Urine Negative (Negative); Leukocyte Esterase Urine 2+ (Negative); Nitrate Urine Negative (Negative); Protein Urine Neg (Negative); Urine Appearance Cloudy (CLEAR); Urine Color Yellow (Yellow); Urobilinogen Urine Norm (Negative); pH Urine 5 (5-7)
[2020-12-28 12:04] LABS: Add Urine Culture? Yes; Bacteria Urine 3+ /hpf; Squamous Epithelial Cell Urine 0-4 /hpf (0-5); WBC Urine 55-80 /hpf (0-5)
--- NOTE | 2020-12-28 13:43 | PC.NURSE ---
Rcvd verbal order from Dr Castillo to reduce maintenance fluids at 75ml/hr instead of 100ml/hr. Scheme Technician changed order
[2020-12-28] MEDS: D5-NS 0.45% + KCL 20 mEq 20 MEQ/1,000 ML BAG 75 MEQ IV (13:44)
[2020-12-28] MEDS: cefTRIAXone 1,000 MG in sodium chloride 0.9% (plus) 50 ML 100 MG IV (13:45)
--- NOTE | 2020-12-28 13:47 | PC.NURSE ---
consent for blood signed and placed in file
--- NOTE | 2020-12-28 13:52 | P.HP_ITS ---
Providers/Chief Complaint Admitting Physician: Dima Castillo MD Primary Care Provider: Fanny Devlin MD, [facility] [place] Chief Complaint: COFFEE GROUND EMESIS History of Present Illness Jenifer Schwartz is a 75 year old female with PMH of COPD On 4Ls home oxgen, Combined HFrEF as well as HFpEF, CAD , DVT, /PE ( No on Ac ) , COVID, HTN, DM Came in with c/o having several episodes of hematemesis starting overnight, described as coffee ground emesis. She was recently discharged on after undergoing EGD for similar complain.ED Done on 12/18/20 which showed esophagitis, moderate amount of coffee ground material was noted in the stomach, no bleeding identified. Biopsy for H.pylori :Negative. 1 unit of packed red blood cells were transfused on December 20, 2019. Hemoglobin at discharge was at 9.4. Patient's Eliquis and Plavix have been discontinued at the time of discharge.Upon arrival in the ER she was worked up for above mentioned complain. Pertinent Imaging studies: C.T ABdomen and Plvis without Contrast: Severe distention of the stomach with fluid and air. This may be due to gastroparesis. The duodenal C-loop is not well visualized. Obstructing lesion is not evident but should be considered as a possible etiology. There is no ischemic change.Mild constipation.No free air or free fluid. Small bilateral pleural effusions with minimal increase in size since the prior study.Fluid in the distal esophagus from reflux disease. EKG:Sinus Tachycardia with LAD Pertinent Labs : H/H : 6.4/, WBC : 18T, Review of Systems Const: Denies: fever(s), chills, body aches or diaphoresis Card: Denies: palpitations, edema, swelling of feet/ankles or leg pain with exertion Resp: Denies: dyspnea or pain on inspiration GI: Denies: abdominal pain, diarrhea or constipation : Denies: flank pain Musc: Denies: extremity pain or extremity swelling Neuro: Denies: headache(s) Medications/Allergies Home Medications Medication Instructions Recorded Confirmed Last Taken Type Enema Disposable 118 ml [place] DAILY PRN 12/17/20 12/17/20 Unknown History Miralax 17 g PO DAILY PRN 12/17/20 12/17/20 Unknown History Senna-S 1 tab-cap PO BID PRN 12/17/20 12/17/20 Unknown History acetaminophen [Tylenol] 650 mg PO QID PRN 12/17/20 12/17/20 12/16/20 History albuterol sulfate 2.5 mg INHALATION Q4H PRN 12/17/20 12/17/20 Unknown History budesonide-formoterol [Symbicort] 2 puff INHALATION BID@0800,199912/17/20 12/17/20 12/17/20 History camphor-menthol 1 applic TOPICAL TID PRN 12/17/20 12/17/20 Unknown History food supplemt, lactose-reduced 30 ea PO BID 12/17/20 12/17/20 12/17/20 History furosemide [Lasix] 20 mg PO DAILY@0800 12/17/20 12/17/20 12/17/20 History gabapentin 100 mg PO TID@0800,1600,199912/17/20 12/17/20 12/17/20 History hydrocodone-acetaminophen 1 tab PO Q6H PRN 12/17/20 12/17/20 Unknown History ipratropium-albuterol 3 ml INHALATION Q4H PRN 12/17/20 12/17/20 12/17/20 History lorazepam 0.5 mg PO Q4H PRN 12/17/20 12/17/20 12/16/20 History metoprolol tartrate 12.5 mg PO BID@08,20 12/17/20 12/17/20 12/17/20 History mirtazapine 7.5 mg PO DAILY@199912/17/20 12/17/20 12/16/20 History multivitamin 1 tab PO DAILY@0812/17/20 12/17/20 12/17/20 History ondansetron HCl [Zofran] 4 mg PO Q8H PRN 12/17/20 12/17/20 12/17/20 History potassium chloride 10 meq PO DAILY@0800 12/17/20 12/17/20 12/17/20 History simvastatin 40 mg PO DAILY@199912/17/20 12/17/20 12/16/20 History pantoprazole 40 mg PO BID #0 tab 12/21/20 12/17/20 12/17/20 Rx Allergies Allergy/AdvReac Type Severity Reaction Status Date / Time No Known Allergies Allergy Verified 12/17/20 09:37 PFSH Acute PFSH: Medical History (Updated 12/28/20 @ 14:20 by Dima Castillo MD) Ataxia Congestive heart failure Chronic combined systolic/diastolic COPD (chronic obstructive pulmonary disease) Coronary artery disease / [place] COVID-19 Aug 2020 Degenerative joint disease Dementia Depression DVT (deep venous thrombosis) Hypertension Neuropathy Pulmonary embolism Type 2 diabetes mellitus Surgical History History of primary section x 3 Status post hip surgery Bilateral hip fractures Social History Smoking and tobacco status: former smoker Quit status (tobacco): has quit using tobacco Year quit tobacco: 2016 Former quit date comment: [id number] history previously Alcohol intake: never Vitals/I&O/Wt Last Vital Signs Temp 99.4 F 12/28/20 10:40 Pulse 103 H 12/28/20 12:32 Resp 19 H 12/28/20 12:32 BP 114/50 12/28/20 12:32 Pulse Ox 95 12/28/20 12:32 Weight last 48 hrs Weight 61.689 kg Physical Exam Const: COMMON NORMALS: patient oriented x3 Chest: CHEST: Yes Symmetrical chest wall rise Resp: COMMON NORMALS: clear to auscultation bilaterally EFFORT & INSPEC TION: Yes symmetric chest movement AUSCULTATION: clear to auscultation bilaterally Cardio: COMMON NORMALS: regular rate, regular rhythm, S1 normal heart sound present, S2 normal heart sound present, No gallops present (Cardio), No murmurs present (Cardio), No rub (Cardio) and Peripheral pulses 2+ throughout RATE: regular rate RHYTHM: regular rhythm HEART SOUNDS: S1 normal heart sound present and S2 normal heart sound present PERIPHERAL PULSES: Peripheral pulses 2+ throughout GI: COMMON NORMALS: Normal to inspection, nondistended, normoactive bowel sounds present, Soft to palpation, non-tender, No hepatosplenomegaly present and no masses AUSCULTATION: Yes normoactive bowel sounds PALPATION: Yes Soft to palpation and Yes No hepatosplenomegaly present RECTAL EXAM: deferred Extremity: COMMON NORMALS: no pedal edema Data : 12/28/20 11:00 12/28/20 11:00 A&P Assessment and plan (1) Hematemesis: NPO Protonix 40 mg I.V Q12 H Daily Normal saline @75cc/hr . Monitor CBC 2Us PRBC Surgery Consult for Possible EGD +- Colonscopy Status: Acute (2) Gastritis: Status: Acute (3) Anemia due to blood loss: Monitor CBC Transfuse to maintain Hb> 7 Status: Acute (4) Leukocytosis: Likely Reactive: No obvious sign or symptoms of infection. Xray chest o r/o possible aspiration Lactic acid Blood Culture Urine Culture Will hold on Abxs. Status: Acute (5) Type 2 diabetes mellitus: LDSSI FSG Status: Acute (6) Pulmonary embolism: Not on Ac Status: Acute (7) DVT (deep venous thrombosis): Status: Acute (8) Coronary artery disease: Status: Acute (9) COPD (chronic obstructive pulmonary disease): Currenly not in exacerbation Status: Acute (10) Congestive heart failure: Currently compensated. Status: Acute Additional A&P Information Code Status :Full Code DVT PPX: SCDs Disposition :N/H Attestations Medical Necessity Statement*: Patient needs to be in hospital for the management of G.I Bleed. Anticipated LOS greater then 2 midnights Coding Level of Care Code Acute Classified Ad Taker for Chg Fwd Exam Detailed Diagnoses Hematemesis K92.0 Gastritis K29.70 Anemia due to blood loss D50.0 Leukocytosis D72.829 Type 2 diabetes mellitus E11.9 Pulmonary embolism I26.99 DVT (deep venous thrombosis) I82.409 Coronary artery disease I25.10 COPD (chronic obstructive pulmonary disease) J44.9 Congestive heart failure I50.9
[2020-12-28 14:27] LABS: Troponin(5th) Baseline 9 ng/L (0-10)
[2020-12-28] MEDS: sodium chloride 0.9% (100 ml) 100 ML 10 ML ×2 (14:27→17:10)
[2020-12-28 20:33] LABS: Basophils # 0.1 10^3/uL (0.0-0.1); Basophils % 0.4 %; Eosinophils # 0.1 10^3/uL (0.0-0.8); Eosinophils % 0.7 %; Hematocrit 33.8 % (37.0-47.0); Lymphocytes # 2.2 10^3/uL (0.8-4.8); Lymphocytes % 13.5 %; Mean Corpuscular HGB Conc 29.3 g/dL (30.0-36.0); Mean Corpuscular Hemoglobin 26.4 pg (28.0-34.0); Mean Platelet Volume 10.9 fL (7.4-10.4); Monocytes # 1.8 10^3/uL (0.2-0.9); Monocytes % 10.6 %; Neutrophils # 12.28 10^3/uL (1.8-7.7); Nucleated Red Blood Cells % 0.1 %; Platelet Count 329 10^3/cmm (130-400); Red Blood Count 3.75 10^6/uL (4.1-5.3); Red Cell Distribution Width 16.1 % (12.1-15.1); White Blood Count 16.6 10^3/uL (4.0-10.0)
[2020-12-28 20:45] LABS: Hemoglobin 9.9 g/dL (11.5-15.3); Mean Corpuscular Volume 90.1 fL (81-99)
--- NOTE | 2020-12-28 21:09 | XR_ITS ---
WS: [id number] Portable AP upright chest, 12/28/2020 Clinical Data: shortness of breath, course lungs Comparison: Portable chest, 12/17/2020. Findings: There is a patchy opacity overlying the left diaphragm which could represent atelectasis an d/or pneumonia. There is a small right effusion and minimal atelectasis over the surface of the right diaphragm. The heart is normal. No pneumothorax is present. The aortic arch and descending aorta apple w calcification and tortuosity. There is a moderate dextroscoliosis. XR/XR chest 1V portable [id number] Impression: 1. No change in left lower lobe opacity which could represent atelectasis and/o r pneumonia. 2. No change in minimal right lower lobe atelectasis and small right effusion. 3. No change in atherosclerosis.
[2020-12-28 21:12] LABS: Lactate (Lactic Acid level) 1.1 mmol/L (0.5-2.2)
[2020-12-28 21:13] LABS: Troponin 5 2HR 11.22 ng/L (0-10)
[2020-12-28 21:17] LABS: Troponin 5 2HR Delta 2.22 ABS# (0-10)
[2020-12-28] MEDS: FUROsemide 10 mg/mL SDV 2mL 20 MG IVP (21:29)
[2020-12-28] MEDS: metoprolol tartrate 25 mg Tablet 12.5 MG PO (21:41)
--- NOTE | 2020-12-28 22:26 | PM.EVENT ---
Event Note Event Note: Patient was requiring 6 L at home she uses 4 L for COPD She was complaining of mild shortness of breath On clinical examination she had crackles She received blood transfusion and was on maintenance fluids Plan: Discontinue IV fluids Chest x-ray revealed mild pulmonary edema with resolution of consolidation which is present on previous x-ray on 12/17, Start Lasix 20 IV To decrease work of breathing will use BiPAP for tonight
[2020-12-28 22:44] LABS: Troponin 5 6HR 12.21 ng/L (0-10)
[2020-12-28 22:53] LABS: Troponin 5 6HR Delta 0.99 ng/L (0-12)
[2020-12-28] MEDS: FUROsemide 10 mg/mL SDV 4mL 40 MG IVP (23:18)
[2020-12-29] VITALS (12 sets, daily range): BP systolic 105–157; BP diastolic 64–88; PULSE 87–121; RESP 18–23; TEMP 36.8–37.1; O2SAT 90–103
[2020-12-29] MEDS: pantoprazole 40 mg SDV IVP ×3 (00:48→23:59)
[2020-12-29 06:29] LABS: Basophils # 0.1 10^3/uL (0.0-0.1); Basophils % 0.5 %; Eosinophils # 0.4 10^3/uL (0.0-0.8); Eosinophils % 2.5 %; Hematocrit 35.9 % (37.0-47.0); Hemoglobin 11.2 g/dL (11.5-15.3); Lymphocytes # 1.9 10^3/uL (0.8-4.8); Lymphocytes % 10.9 %; Mean Corpuscular HGB Conc 31.2 g/dL (30.0-36.0); Mean Corpuscular Hemoglobin 26.4 pg (28.0-34.0); Mean Corpuscular Volume 84.5 fL (81-99); Mean Platelet Volume 11.4 fL (7.4-10.4); Monocytes # 1.6 10^3/uL (0.2-0.9); Monocytes % 9.4 %; Neutrophils # 13.02 10^3/uL (1.8-7.7); Neutrophils % 75.9 %; Nucleated Red Blood Cells % 0.1 %; Platelet Count 438 10^3/cmm (130-400); Red Blood Count 4.25 10^6/uL (4.1-5.3); Red Cell Distribution Width 15.9 % (12.1-15.1); White Blood Count 17.2 10^3/uL (4.0-10.0)
[2020-12-29 06:40] LABS: INR 0.99 (0.8-1.2)
[2020-12-29 06:53] LABS: Alanine Aminotransferase 14 U/L (0-33); Albumin Level 3.4 g/dL (3.5-5.2); Alkaline Phosphatase 58 IU/L (35-105); Aspartate Amino Transferase 16 U/L (0-32); Blood Urea Nitrogen 10 mg/dL (8-23); Calcium 8.3 mg/dL (8.5-10.5); Carbon Dioxide 32 mmol/L (22-29); Chloride 97 mmol/L (98-107); Globulin 3.6 g/dL (1.3-4.6); Glucose 129 mg/dL (65-115); Osmolality Calculated 285 mOsm/kg (285-295); Sodium 137 mmol/L (136-145); Total Bilirubin 0.4 mg/dL (0.15-1.2)
[2020-12-29 06:56] LABS: Anion Gap 11.7 (5-19); Potassium 3.7 mmol/L (3.5-5.1)
[2020-12-29] MEDS: metoprolol tartrate 25 mg Tablet 12.5 MG PO (09:01)
[2020-12-29] MEDS: FUROsemide 10 mg/mL SDV 2mL 20 MG IVP (09:01)
[2020-12-29] MEDS: levofloxacin-dextrose 5 % 750 MG/150 ML PREMIX 100 MG IV (09:02)
--- NOTE | 2020-12-29 09:37 | PM.PN ---
Subjective Subjective: Interval history: Overnight I.V fluids were stopped as she was likely having worsening SOB.She was given lasix for it,xray chest is not suggestive of any pulmonary congestion. Patient has known anxiety disorder. Vitals/I&O/Wt Last Vital Signs Temp 98.3 F 12/29/20 08:00 Pulse 121 H 12/29/20 08:00 Resp 18 12/29/20 08:00 BP 157/64 12/29/20 08:00 Pulse Ox 96 12/29/20 08:00 12/28/20 12/29/20 12/29/20 22:59 06:59 14:59 Intake Total 2400 / 2400 Balance 2400 / 2400 Weight last 48 hrs Weight 61.689 kg Physical Exam Narrative: EXAM NARRATIVE: Alert and Awake Chest: CHEST: Yes Symmetrical chest wall rise Resp: COMMON NORMALS: clear to auscultation bilaterally EFFORT & INSPECTION: Yes symmetric chest movement AUSCULTATION: clear to auscultation bilaterally Cardio: COMMON NORMALS: regular rate, regular rhythm, S1 normal heart sound present, S2 normal heart sound present, No gallops present (Cardio), No murmurs present (Cardio), No rub (Cardio) and Peripheral pulses 2+ throughout RATE: regular rate RHYTHM: regular rhythm HEART SOUNDS: S1 normal heart sound present and S2 normal heart sound present PERIPHERAL PULSES: Peripheral pulses 2+ throughout GI: COMMON NORMALS: Normal to inspection, nondistended, normoactive bowel sounds present, Soft to palpation, non-tender, No hepatosplenomegaly present and no masses AUSCULTATION: Yes normoactive bowel sounds PALPATION: Yes Soft to palpation and Yes No hepatosplenomegaly present RECTAL EXAM: deferred Extremity: COMMON NORMALS: no pedal edema Data : 12/29/20 05:57 12/29/20 05:57 A&P Assessment and plan (1) Hematemesis: NPO Protonix 40 mg I.V Q12 H Daily S/P 2Us PRBC on 12/28: Hb is 11 Surgery Consult for Possible EGD +- Colonscopy Status: Acute (2) Gastritis: Status: Acute (3) Anemia due to blood loss: Monitor CBC Transfuse to maintain Hb> 7 Status: Acute (4) Leukocytosis: Xray chest r/o possible aspiration: No change in left lower lobe opacity which could represent atelectasis and/or pneumonia. Lactic acid:1.1 Blood Culture: Urine Culture Empirically cover her with Levofloxacin 750 mg I.V Daily Status: Acute (5) Type 2 diabetes mellitus: LDSSI FSG Status: Acute (6) Pulmonary embolism: Not on Ac Status: Acute (7) DVT (deep venous thrombosis): Status: Acute (8) Coronary artery disease: Status: Acute (9) COPD (chronic obstructive pulmonary disease): Currenly not in exacerbation Status: Acute (10) Congestive heart failure: Currently compensated. Status: Acute Additional A&P Information Code Status :Full Code DVT PPX: SCDs Disposition :N/H Attestations Medical Necessity Statement*: Patient needs to be in hospital for the management of G.I Bleed and the need for EGD Coding Level of Care Code Acute Director Of Sustainability for Chg Fwd Diagnoses Hematemesis K92.0 Gastritis K29.70 Anemia due to blood loss D50.0 Leukocytosis D72.829 Type 2 diabetes mellitus E11.9 Pulmonary embolism I26.99 DVT (deep venous thrombosis) I82.409 Coronary artery disease I25.10 COPD (chronic obstructive pulmonary disease) J44.9 Congestive heart failure I50.9
[2020-12-29] MEDS: ipratropium-albuterol 3 mL Neb INHALATION ×2 (10:45→21:07)
[2020-12-29] MEDS: LORazepam 1 mg Tablet PO (14:44)
--- NOTE | 2020-12-29 15:17 | ANES.PREANE2 ---
Pre-Anesthetic Assessment Pre-Anesthetic Assessment: Height/Weight: Height 1.63 m Weight 61.689 kg Temp Pulse Resp BP Pulse Ox 98.2 F 105 H 18 108/68 93 12/29/20 12:00 12/29/20 12:00 12/29/20 12:00 12/29/20 12:00 12/29/20 12:00 Preop Diagnosis: GI bleed Proposed Procedure: Operation Date: 12/29/20 12:00 Proposed Procedures p EGD(Not Applicable) - Bartolo Rodriguez MD Familial anesthetic complications: none, states she's only ever received sodium thiopental Last intake: Intake Last Liquid Date 12/28/20 Last Liquid Time 23:50 Social: Social History: No alcohol and No tobacco Exam: Pre-Anes Outpt Exam: alert, oriented x 3, clear to auscultation bilaterally and regular rate & rhythm Additional Exam Findings (including area of procedure): crackles Airway: Dentition: Other (not eeth) Pulmonary: Pulmonary: COPD (4L NC) Comments: hx PE on eliquis -holding w/ GI bleed Covid hx CV/HEM: CV/HEM: CAD, CHF and HTN GI: Comments: 12/28/[address]/CT abdomen pelvis w con* [id number] IMPRESSION: 1. Severe distention of the stomach with fluid and air. This may be due to gastroparesis. The duodenal C-loop is not well visualized. Obstructing lesion is not evident but should be considered as a possible etiology. There is no ischemic change. 2. Mild constipation. 3. No free air or free fluid. 4. Small bilateral pleural effusions with minimal increase in size since the prior study. 5. Osteopenia with numerous compression fractures. 6. Fluid in the distal esophagus from reflux disease. Metabolic: Metabolic: DM Anesthetic Plan: ASA status: 4 Anesthesia: General Other: NPO > 36 hrs, but noted fluid in stomach yesterday on CT scan Risk of > 500 ml blood loss (7ml/kg in children): No Meds/Allergies Current Medications: Current Medications Generic Name Dose Route Start Last Admin Trade Name Freq PRN Reason Stop Dose Admin Albuterol/Ipratrop ium 3 ml 12/28/20 22:28 12/29/20 10:45 Ipratropium-Albu terol 3 Ml Neb INHALATION 3 ml Q6H PRN Administration SHORTNESS OF ZAHIRA TH Sodium Chloride 1,000 mls @ 30 ml s/hr 12/28/20 20:02 12/28/20 21:14 Sodium Chloride 0.9% IV 12/29/20 20:01 Not Given .Q24H ONE Levofloxacin/Dextr ose 750 mg in 150 mls @ 100 mls/hr 12/29/20 08:00 12/29/20 10:32 Levaquin-D5w IV Infused Q24H JESSICA Infusion Protocol Lorazepam 1 mg 12/29/20 14:14 12/29/20 14:44 Lorazepam 1 Mg T ablet PO 1 mg Q12H PRN Administration ANXIETY Metoprolol Tartrat e 12.5 mg 12/28/20 21:00 12/29/20 09:01 Metoprolol Tartr ate 25 Mg Tablet PO 12.5 mg BID@0900,2100 JESSICA Administration Pantoprazole Sodiu m 40 mg 12/29/20 00:00 12/29/20 14:42 Pantoprazole 40 Mg Sdv IVP 40 mg Q12H JESSICA Administration PFSH Anesthesia PFSH: Medical History (Updated 12/28/20 @ 14:20 by Dima Castillo MD) Ataxia Congestive heart failure Chronic combined systolic/diastolic COPD (chronic obstructive pulmonary disease) Coronary artery disease / [place] COVID-19 Aug 2020 Degenerative joint disease Dementia Depression DVT (deep venous thrombosis) Hypertension Neuropathy Pulmonary embolism Type 2 diabetes mellitus Surgical History History of primary section x 3 Status post hip surgery Bilateral hip fractures Social History Smoking and tobacco status: former smoker Quit status (tobacco): has quit using tobacco Year quit tobacco: 2017 Former quit date comment: [id number] history previously Alcohol intake: never Data Anesthesia CBC & Chem 7: 12/29/20 05:57 12/29/20 05:57 Other Labs: Laboratory Results - last 48 hr 12/28/20 12/28/20 12/28/20 11:00 11:00 11:43 WBC 18.1 H RBC 2.59 L Hgb 6.4 L* Hct 21.9 L MCV 84.6 MCH 24.7 L MCHC 29.2 L RDW 17.4 H Plt Count 306 MPV 11.2 H Neut % (Auto) 81.9 Lymph % (Auto) 9.3 [place] % (Auto) 7.8 Eos % (Auto) 0.2 Baso % (Auto) 0.3 Neut # (Auto) 14.81 H Lymph # (Auto) 1.7 [place] # (Auto) 1.4 H Eos # (Auto) 0.0 Baso # (Auto) 0.1 Nucleated RBC % (auto) 0 Nucleated RBCs # 0.0 PT INR Sodium 133 L Potassium 4.3 Chloride 98 Carbon Dioxide 28 Anion Gap 11.3 BUN 19 Creatinine 0.4 L GFR Calculation Not Reportable Glucose 136 H Calculated Osmolality 280 L Lactate Calcium 7.7 L Magnesium 2.0 Total Bilirubin 0.2 AST 11 ALT 13 Alkaline Phosphatase 47 Troponin T Baseline Troponin T 120 Minute Delta Troponin T Troponin T Hi Sens 6Hr Troponin T Hi Sens 6Hr Delta Total Protein 5.6 L Albumin 2.7 L Globulin 2.9 Lipase 22 Urine Color Yellow Urine Appearance Cloudy Urine pH 5 Ur Specific [place] 1.020 Urine Protein Neg Urine Glucose (UA) Norm Urine Ketones Negative Urine Blood Neg Urine Nitrate Negative Urine Bilirubin Neg Urine Urobilinogen Norm Ur Leukocyte Esterase 2+ H Urine RBC None Urine WBC 55-80 H Ur Squamous Epith Cells 0-4 H Amorphous Sediment Not Reportable Urine Bacteria 3+ H Blood Type Rho(D) Type Antibody Screen Crossmatch 12/28/20 12/28/20 12/28/20 12:13 12:13 20:25 WBC RBC Hgb Hct MCV MCH MCHC RDW Plt Count MPV Neut % (Auto) Lymph % (Auto) [place] % (Auto) Eos % (Auto) Baso % (Auto) Neut # (Auto) Lymph # (Auto) [place] # (Auto) Eos # (Auto) Baso # (Auto) Nucleated RBC % (auto) Nucleated RBCs # PT INR Sodium Potassium Chloride Carbon Dioxide Anion Gap BUN Creatinine GFR Calculation Glucose Calculated Osmolality Lactate 1.1 Calcium Magnesium Total Bilirubin AST ALT Alkaline Phosphatase Troponin T Baseline 9 Troponin T 120 Minute Delta Troponin T Troponin T Hi Sens 6Hr Troponin T Hi Sens 6Hr Delta Total Protein Albumin Globulin Lipase Urine Color Urine Appearance Urine pH Ur Specific [place] Urine Protein Urine Glucose (UA) Urine Ketones Urine Blood Urine Nitrate Urine Bilirubin Urine Urobilinogen Ur Leukocyte Esterase Urine RBC Urine WBC Ur Squamous Epith Cells Amorphous Sediment Urine Bacteria Blood Type A Positive Rho(D) Type Positive / 4+ Antibody Screen Negative Crossmatch See Detail 12/28/20 12/28/20 12/28/20 20:25 20:25 22:18 WBC 16.6 H RBC 3.75 L Hgb 9.9 L D Hct 33.8 L D MCV 90.1 D MCH 26.4 L MCHC 29.3 L RDW 16.1 H Plt Count 329 MPV 10.9 H Neut % (Auto) 74.0 Lymph % (Auto) 13.5 [place] % (Auto) 10.6 Eos % (Auto) 0.7 Baso % (Auto) 0.4 Neut # (Auto) 12.28 H Lymph # (Auto) 2.2 [place] # (Auto) 1.8 H Eos # (Auto) 0.1 Baso # (Auto) 0.1 Nucleated RBC % (auto) 0.1 Nucleated RBCs # 0.0 PT INR Sodium Potassium Chloride Carbon Dioxide Anion Gap BUN Creatinine GFR Calculation Glucose Calculated Osmolality Lactate Calcium Magnesium Total Bilirubin AST ALT Alkaline Phosphatase Troponin T Baseline Troponin T 120 Minute 11.22 H Delta Troponin T 2.22 Troponin T Hi Sens 6Hr 12.21 H Troponin T Hi Sens 6Hr Delta 0.99 Total Protein Albumin Globulin Lipase Urine Color Urine Appearance Urine pH Ur Specific [place] Urine Protein Urine Glucose (UA) Urine Ketones Urine Blood Urine Nitrate Urine Bilirubin Urine Urobilinogen Ur Leukocyte Esterase Urine RBC Urine WBC Ur Squamous Epith Cells Amorphous Sediment Urine Bacteria Blood Type Rho(D) Type Antibody Screen Crossmatch 12/29/20 12/29/20 12/29/20 05:57 05:57 05:57 WBC 17.2 H RBC 4.25 Hgb 11.2 L Hct 35.9 L MCV 84.5 D MCH 26.4 L MCHC 31.2 D RDW 15.9 H Plt Count 438 H MPV 11.4 H Neut % (Auto) 75.9 Lymph % (Auto) 10.9 [place] % (Auto) 9.4 Eos % (Auto) 2.5 Baso % (Auto) 0.5 Neut # (Auto) 13.02 H Lymph # (Auto) 1.9 [place] # (Auto) 1.6 H Eos # (Auto) 0.4 Baso # (Auto) 0.1 Nucleated RBC % (auto) 0.1 Nucleated RBCs # 0.0 PT 13.40 INR 0.99 Sodium 137 Potassium 3.7 Chloride 97 L Carbon Dioxide 32 H Anion Gap 11.7 BUN 10 Creatinine 0.4 L GFR Calculation Not Reportable Glucose 129 H Calculated Osmolality 285 Lactate Calcium 8.3 L Magnesium Total Bilirubin 0.4 AST 16 ALT 14 Alkaline Phosphatase 58 Troponin T Baseline Troponin T 120 Minute Delta Troponin T Troponin T Hi Sens 6Hr Troponin T Hi Sens 6Hr Delta Total Protein 7.0 D Albumin 3.4 L Globulin 3.6 Lipase Urine Color Urine Appearance Urine pH Ur Specific [place] Urine Protein Urine Glucose (UA) Urine Ketones Urine Blood Urine Nitrate Urine Bilirubin Urine Urobilinogen Ur Leukocyte Esterase Urine RBC Urine WBC Ur Squamous Epith Cells Amorphous Sediment Urine Bacteria Blood Type Rho(D) Type Antibody Screen Crossmatch Cardiac Studies: No Data to Display
--- NOTE | 2020-12-29 17:27 | P.CONIM_ITS ---
Providers/Reason For Consult Consulting Physican/Specialty*: Dima Castillo MD Reason for Consult*: GI bleed Attending Physician: Dima Castillo MD Primary Care Provider: Fanny Devlin MD, [facility] – [place], [place] History of Present Illness History of Present Illness Jenifer Schwartz is a 75 year old female who presented to the ER from a half-way with complaints of abdominal distention and coffee-ground emesis. Today she denies any abdominal pain, no nausea or vomiting. She is not sure if she has any blood in her stools. She was admitted to the hospital in November with a similar episode and Dr. Brannon had performed an EGD on 12/18/2020 which showed esophagitis and intraluminal blood. Review of Systems General: Reports: 10 or more systems reviewed and unremarkable except in HPI and below Meds/Allergies Home Medications and Allergies Home Medications Medication Instructions Recorded Confirmed Last Taken Type Enema Disposable 118 ml NV DAILY PRN 12/17/20 12/29/20 Unknown History acetaminophen [Tylenol] 650 mg PO QID PRN 12/17/20 12/29/20 12/16/20 History albuterol sulfate 2.5 mg INHALATION Q4H PRN 12/17/20 12/29/20 Unknown History budesonide-formoterol [Symbicort] 2 puff INHALATION BID@12/17/20 12/29/20 12/17/20 History furosemide [Lasix] 20 mg PO DAILY@12/17/20 12/29/20 12/17/20 History gabapentin 100 mg PO TID@08,,12/17/20 12/29/20 12/17/20 History hydrocodone-acetaminophen 1 tab PO Q6H PRN 12/17/20 12/29/20 Unknown History ipratropium-albuterol 3 ml INHALATION Q4H PRN 12/17/20 12/29/20 12/17/20 History lorazepam 0.5 mg PO Q4H PRN 12/17/20 12/29/20 12/16/20 History metoprolol tartrate 12.5 mg PO BID@,12/17/20 12/29/20 12/17/20 History mirtazapine 7.5 mg PO DAILY@12/17/20 12/29/20 12/16/20 History multivitamin 1 tab PO DAILY@08 12/17/20 12/29/20 12/17/20 History ondansetron HCl [Zofran] 4 mg PO Q8H PRN 12/17/20 12/29/20 12/17/20 History polyethylene glycol 3350 [Miralax] 17 g PO DAILY PRN 12/17/20 12/29/20 Unknown History potassium chloride 10 meq PO DAILY@08 12/17/20 12/29/20 12/17/20 History sennosides-docusate sodium 1 tab-cap PO BID PRN 12/17/20 12/29/20 Unknown History [Senna-S] simvastatin 40 mg PO DAILY@20 12/17/20 12/29/20 12/16/20 History bisacodyl 10 mg NV DAILY PRN 12/29/20 12/29/20 Unknown History food supplemt, lactose-reduced See Rx Instructions .ROUTE .COMPLEX 12/29/20 12/29/20 Unknown History [TwoCal HN] menthol [Biofreeze (menthol)] See Rx Instructions .ROUTE .COMPLEX 12/29/20 0 12/29/20 Unknown History pantoprazole 40 mg PO BID@08,20 12/29/20 12/29/20 Unknown History Allergies Allergy/AdvReac Type Severity Reaction Status Date / Time No Known Allergies Allergy Verified 12/17/20 09:37 Current Medications Current Medications Generic Name Dose Route Start Last Admin Trade Name Freq PRN Reason Stop Dose Admin Albuterol/Ipratropium 3 ml 12/28/20 22:28 12/29/20 10:45 Ipratropium-Albuterol 3 Ml Neb INHALATION 3 ml Q6H PRN Administration SHORTNESS OF BREATH Sodium Chloride 1,000 mls @ 30 mls/hr 12/28/20 20:02 12/28/20 21:14 Sodium Chloride 0.9% IV 12/29/20 20:01 Not Given .Q24H ONE Levofloxacin/Dextrose 750 mg in 150 mls @ 100 mls/hr 12/29/20 08:00 12/29/20 10:32 Levaquin-D5w IV Infused Q24H JESSICA Infusion Protocol Lorazepam 1 mg 12/29/20 14:14 12/29/20 14:44 Lorazepam 1 Mg Tablet PO 1 mg Q12H PRN Administration ANXIETY Metoprolol Tartrate 12.5 mg 12/28/20 21:00 12/29/20 09:01 Metoprolol Tartrate 25 Mg Tablet PO 12.5 mg BID@0900,2100 JESSICA Administration Pantoprazole Sodium 40 mg 12/29/20 00:00 12/29/20 14:42 Pantoprazole 40 Mg Sdv IVP 40 mg Q12H JESSICA Administration PFSH Acute PFSH: Medical History (Updated 12/28/20 @ 14:20 by Dima Castillo MD) Ataxia Congestive heart failure Chronic combined systolic/diastolic COPD (chronic obstructive pulmonary disease) Coronary artery disease / [place] COVID-19 Aug 2020 Degenerative joint disease Dementia Depression DVT (deep venous thrombosis) Hypertension Neuropathy Pulmonary embolism Type 2 diabetes mellitus Surgical History (Updated 12/29/20 @ 17:28 by Bartolo Rodriguez MD) H/O esophagogastroduodenoscopy History of primary section x 3 Status post hip surgery Bilateral hip fractures Social History Smoking and tobacco status: former smoker Quit status (tobacco): has quit using tobacco Year quit tobacco: 2016 Former quit date comment: [id number] history previously Alcohol intake: never Vitals/I&O/Wt Last Vital Signs Temp 98.8 F 12/29/20 16:00 Pulse 98 12/29/20 16:00 Resp 18 12/29/20 16:00 BP 105/64 12/29/20 16:00 Pulse Ox 97 12/29/20 16:00 12/29/20 12/29/20 12/29/20 06:59 14:59 22:59 Intake Total 150 / 150 Balance 150 / 150 Weight last 48 hrs Weight 136 lb Physical Exam Narrative: EXAM NARRATIVE: HEENT: Normocephalic Eye: Sclera /conjunctiva normal Abdomen: Soft to palpation Neurological: Oriented to place person and time Skin: Intact, no lesions appreciated on gross exam A&P Assessment and plan (1) Coffee ground emesis: 75-year-old female with coffee-ground emesis who was recently admitted for esophagitis. Continue Protonix Plan for EGD under MAC tomorrow Procedure, risks, benefits and alternatives have been discussed with the patient who wishes to proceed with surgery. Status: Acute Coding Level of Care Code Acute Graduate Internship for [facility] Fwd Diagnoses Coffee ground emesis K92.0
--- NOTE | 2020-12-29 18:09 | PC.RESP ---
Pulmonary Rehab information sent to patient.
[2020-12-29] MEDS: ondansetron 2 mg/ML SDV 2 mL 4 MG IVP (21:25)
[2020-12-30] VITALS (14 sets, daily range): BP systolic 100–147; BP diastolic 53–83; PULSE 85–116; RESP 18–22; TEMP 36.4–37.1; O2SAT 88–98
[2020-12-30 06:03] LABS: Basophils % 0.4 %; Eosinophils # 0.3 10^3/uL (0.0-0.8); Eosinophils % 3.4 %; Hematocrit 30.9 % (37.0-47.0); Hemoglobin 9.5 g/dL (11.5-15.3); Lymphocytes % 20.8 %; Mean Corpuscular HGB Conc 30.7 g/dL (30.0-36.0); Mean Corpuscular Hemoglobin 26.2 pg (28.0-34.0); Mean Corpuscular Volume 85.1 fL (81-99); Mean Platelet Volume 10.8 fL (7.4-10.4); Monocytes # 1.1 10^3/uL (0.2-0.9); Monocytes % 11.4 %; Neutrophils # 5.93 10^3/uL (1.8-7.7); Neutrophils % 63.4 %; Nucleated Red Blood Cells % 0 %; Platelet Count 342 10^3/cmm (130-400); Red Blood Count 3.63 10^6/uL (4.1-5.3); Red Cell Distribution Width 15.9 % (12.1-15.1); White Blood Count 9.4 10^3/uL (4.0-10.0)
[2020-12-30 06:50] LABS: Alanine Aminotransferase 11 U/L (0-33); Albumin Level 2.8 g/dL (3.5-5.2); Alkaline Phosphatase 51 IU/L (35-105); Aspartate Amino Transferase 12 U/L (0-32); Blood Urea Nitrogen 10 mg/dL (8-23); Calcium 8.4 mg/dL (8.5-10.5); Carbon Dioxide 31 mmol/L (22-29); Chloride 96 mmol/L (98-107); Globulin 3.3 g/dL (1.3-4.6); Glucose 89 mg/dL (65-115); Osmolality Calculated 279 mOsm/kg (285-295); Sodium 135 mmol/L (136-145); Total Bilirubin 0.3 mg/dL (0.15-1.2); Total Protein 6.1 g/dL (6.6-8.7)
[2020-12-30 07:03] LABS: NT Pro B Type Natriuretic Pept 361 pg/mL (0-450); Procalcitonin 0.08 ng/mL (0-0.5)
[2020-12-30] MEDS: sodium chloride 0.9% 1,000 ML 30 ML IV (07:34)
--- NOTE | 2020-12-30 07:39 | P.ANESUD_ITS ---
Pre-Anesthetic Update Pre-Anesthetic Assessment: Date of Surgery/Procedure: 12/30/20 Preop Kesha gnosis: GI bleed Proposed Procedure: Operation Date: 12/29/20 12:00 Proposed Procedures p EGD(Not Applicable) - Bartolo Rodriguez MD Operation Date: 12/30/20 07:30 Proposed Procedures p EGD(Not Applicable) - Bartolo Rodriguez MD Any changes to Pre-Anesthetic Assessment?: No Changes from Pre-Anesthetic Assessment: patient denies any changes Last Intake: Intake Last Liquid Date 12/28/20 Last Liquid Time 23:50 Labs Last 48hrs: Laboratory Results - last 48 hr 12/28/20 12/28/20 12/28/20 11:00 11:00 11:43 WBC 18.1 H RBC 2.59 L Hgb 6.4 L* Hct 21.9 L MCV 84.6 MCH 24.7 L MCHC 29.2 L RDW 17.4 H Plt Count 306 MPV 11.2 H Neut % (Auto) 81.9 Lymph % (Auto) 9.3 Titus % (Auto) 7.8 Eos % (Auto) 0.2 Baso % (Auto) 0.3 Neut # (Auto) 14.81 H Lymph # (Auto) 1.7 Titus # (Auto) 1.4 H Eos # (Auto) 0.0 Baso # (Auto) 0.1 Nucleated RBC % (a uto) 0 Nucleated RBCs # 0.0 PT INR Sodium 133 L Potassium 4.3 Chloride 98 Carbon Dioxide 28 Anion Gap 11.3 BUN 19 Creatinine 0.4 L GFR Calculation Not Reportable Glucose 136 H Calculated Osmolal ity 280 L Lactate Calcium 7.7 L Magnesium 2.0 Total Bilirubin 0.2 AST 11 ALT 13 Alkaline Phosphata se 47 Troponin T Baselin e Troponin T 120 Min anthony Delta Troponin T Troponin T Hi Sens 6Hr Troponin T Hi Sens 6Hr Delta NT-Pro-B Natriuret Pep Total Protein 5.6 L Albumin 2.7 L Globulin 2.9 Lipase 22 Procalcitonin Urine Color Yellow Urine Appearance Cloudy Urine pH 5 Ur Specific Gravit y 1.020 Urine Protein Neg Urine Glucose (UA) Norm Urine Ketones Negative Urine Blood Neg Urine Nitrate Negative Urine Bilirubin Neg Urine Urobilinogen Norm Ur Leukocyte Sharlene ase 2+ H Urine RBC None Urine WBC 55-80 H Ur Squamous Epith Cells 0-4 H Amorphous Sediment Not Reportable Urine Bacteria 3+ H Blood Type Rho(D) Type Antibody Screen Crossmatch 12/28/20 12/28/20 12/28/20 12:13 12:13 20:25 WBC RBC Hgb Hct MCV MCH MCHC RDW Plt Count MPV Neut % (Auto) Lymph % (Auto) Titus % (Auto) Eos % (Auto) Baso % (Auto) Neut # (Auto) Lymph # (Auto) Titus # (Auto) Eos # (Auto) Baso # (Auto) Nucleated RBC % (a uto) Nucleated RBCs # PT INR Sodium Potassium Chloride Carbon Dioxide Anion Gap BUN Creatinine GFR Calculation Glucose Calculated Osmolal ity Lactate 1.1 Calcium Magnesium Total Bilirubin AST ALT Alkaline Phosphata se Troponin T Baselin e 9 Troponin T 120 Min anthony Delta Troponin T Troponin T Hi Sens 6Hr Troponin T Hi Sens 6Hr Delta NT-Pro-B Natriuret Pep Total Protein Albumin Globulin Lipase Procalcitonin Urine Color Urine Appearance Urine pH Ur Specific Gravit y Urine Protein Urine Glucose (UA) Urine Ketones Urine Blood Urine Nitrate Urine Bilirubin Urine Urobilinogen Ur Leukocyte Sharlene ase Urine RBC Urine WBC Ur Squamous Epith Cells Amorphous Sediment Urine Bacteria Blood Type A Positive Rho(D) Type Positive / 4+ Antibody Screen Negative Crossmatch See Detail 12/28/20 12/28/20 12/28/20 20:25 20:25 22:18 WBC 16.6 H RBC 3.75 L Hgb 9.9 L D Hct 33.8 L D MCV 90.1 D MCH 26.4 L MCHC 29.3 L RDW 16.1 H Plt Count 329 MPV 10.9 H Neut % (Auto) 74.0 Lymph % (Auto) 13.5 Titus % (Auto) 10.6 Eos % (Auto) 0.7 Baso % (Auto) 0.4 Neut # (Auto) 12.28 H Lymph # (Auto) 2.2 Titus # (Auto) 1.8 H Eos # (Auto) 0.1 Baso # (Auto) 0.1 Nucleated RBC % (a uto) 0.1 Nucleated RBCs # 0.0 PT INR Sodium Potassium Chloride Carbon Dioxide Anion Gap BUN Creatinine GFR Calculation Glucose Calculated Osmolal ity Lactate Calcium Magnesium Total Bilirubin AST ALT Alkaline Phosphata se Troponin T Baselin e Troponin T 120 Min anthony 11.22 H Delta Troponin T 2.22 Troponin T Hi Sens 6Hr 12.21 H Troponin T Hi Sens 6Hr Delta 0.99 NT-Pro-B Natriuret Pep Total Protein Albumin Globulin Lipase Procalcitonin Urine Color Urine Appearance Urine pH Ur Specific Gravit y Urine Protein Urine Glucose (UA) Urine Ketones Urine Blood Urine Nitrate Urine Bilirubin Urine Urobilinogen Ur Leukocyte Sharlene ase Urine RBC Urine WBC Ur Squamous Epith Cells Amorphous Sediment Urine Bacteria Blood Type Rho(D) Type Antibody Screen Crossmatch 12/29/20 12/29/20 12/29/20 05:57 05:57 05:57 WBC 17.2 H RBC 4.25 Hgb 11.2 L Hct 35.9 L MCV 84.5 D MCH 26.4 L MCHC 31.2 D RDW 15.9 H Plt Count 438 H MPV 11.4 H Neut % (Auto) 75.9 Lymph % (Auto) 10.9 Titus % (Auto) 9.4 Eos % (Auto) 2.5 Baso % (Auto) 0.5 Neut # (Auto) 13.02 H Lymph # (Auto) 1.9 Titus # (Auto) 1.6 H Eos # (Auto) 0.4 Baso # (Auto) 0.1 Nucleated RBC % (a uto) 0.1 Nucleated RBCs # 0.0 PT 13.40 INR 0.99 Sodium 137 Potassium 3.7 Chloride 97 L Carbon Dioxide 32 H Anion Gap 11.7 BUN 10 Creatinine 0.4 L GFR Calculation Not Reportable Glucose 129 H Calculated Osmolal ity 285 Lactate Calcium 8.3 L Magnesium Total Bilirubin 0.4 AST 16 ALT 14 Alkaline Phosphata se 58 Troponin T Baselin e Troponin T 120 Min anthony Delta Troponin T Troponin T Hi Sens 6Hr Troponin T Hi Sens 6Hr Delta NT-Pro-B Natriuret Pep Total Protein 7.0 D Albumin 3.4 L Globulin 3.6 Lipase Procalcitonin Urine Color Urine Appearance Urine pH Ur Specific Gravit y Urine Protein Urine Glucose (UA) Urine Ketones Urine Blood Urine Nitrate Urine Bilirubin Urine Urobilinogen Ur Leukocyte Sharlene ase Urine RBC Urine WBC Ur Squamous Epith Cells Amorphous Sediment Urine Bacteria Blood Type Rho(D) Type Antibody Screen Crossmatch 12/30/20 12/30/20 12/30/20 05:42 05:42 05:42 WBC 9.4 RBC 3.63 L Hgb 9.5 L Hct 30.9 L MCV 85.1 MCH 26.2 L MCHC 30.7 RDW 15.9 H Plt Count 342 MPV 10.8 H Neut % (Auto) 63.4 Lymph % (Auto) 20.8 Titus % (Auto) 11.4 Eos % (Auto) 3.4 Baso % (Auto) 0.4 Neut # (Auto) 5.93 Lymph # (Auto) 2.0 Titus # (Auto) 1.1 H Eos # (Auto) 0.3 Baso # (Auto) 0.0 Nucleated RBC % (a uto) 0 Nucleated RBCs # 0.0 PT INR Sodium 135 L Potassium 4.0 Chloride 96 L Carbon Dioxide 31 H Anion Gap 12.0 BUN 10 Creatinine 0.4 L GFR Calculation Not Reportable Glucose 89 Calculated Osmolal ity 279 L Lactate Calcium 8.4 L Magnesium Total Bilirubin 0.3 AST 12 ALT 11 Alkaline Phosphata se 51 Troponin T Baselin e Troponin T 120 Min anthony Delta Troponin T Troponin T Hi Sens 6Hr Troponin T Hi Sens 6Hr Delta NT-Pro-B Natriuret Pep 361 Total Protein 6.1 L Albumin 2.8 L Globulin 3.3 Lipase Procalcitonin 0.08 Urine Color Urine Appearance Urine pH Ur Specific Gravit y Urine Protein Urine Glucose (UA) Urine Ketones Urine Blood Urine Nitrate Urine Bilirubin Urine Urobilinogen Ur Leukocyte Sharlene ase Urine RBC Urine WBC Ur Squamous Epith Cells Amorphous Sediment Urine Bacteria Blood Type Rho(D) Type Antibody Screen Crossmatch Vitals: Temperature 97.8 F 12/30/20 07:24 Temperature Source Oral 12/30/20 04:00 Pulse Rate 103 H 12/30/20 07:24 Respiratory Rate 18 12/30/20 07:24 Respiratory Effort Non-Labored 12/29/20 20:00 Respiratory Depth Normal 12/29/20 20:00 Respiratory Patter n 12/29/20 20:00 Blood Pressure 144/83 12/30/20 07:24 Blood Pressure Ibis n 103 12/30/20 07:24 Blood Pressure Pos ition Semi Fowlers 12/29/20 05:27 Pulse Oximetry 97 12/30/20 07:24 Oxygen Delivery Me thod 12/30/20 07:24 Oxygen Flow Rate 6 12/30/20 07:24 Fraction of Inspir ed Oxygen 30 12/29/20 01:22 Sepsis Recent Feve r Within 48 Hours No 12/28/20 10:40 Sepsis New/Unexpla ined Change in Men power Status No 12/28/20 10:40 Exam: Pre-Anes Outpt Exam: alert, oriented x 3, clear to auscultation bilaterally and regular rate & rhythm Cardiac Studies: No Data to Display
--- NOTE | 2020-12-30 08:03 | ANE.PACU2 ---
Inpatient post-anesthesia follow up: Airway intact: Yes Vital signs: Temperature 97.8 F Pulse Rate [Monito r] 110 Pulse Rate 103 Respiratory Rate 18 Blood Pressure [Le ft Arm] 113/67 Blood Pressure 144/83 Pulse Oximetry 97 Oxygen Delivery Me thod Nasal Cannula Oxygen Flow Rate 6 Fraction of Inspir ed Oxygen 30 Hydration adequate: Yes Nausea and vomiting: No Pain level: 1 Mental status: Baseline
--- NOTE | 2020-12-30 09:01 | P.PN_ITS ---
Subjective Subjective: Interval history: No issues overnight, no evidence of upper or lower GI bleed last night Vitals/I&O/Wt Last Vital Signs Temp 97.6 F 12/30/20 08:01 Pulse 103 H 12/30/20 08:15 Resp 18 12/30/20 08:15 BP 147/69 12/30/20 08:15 Pulse Ox 93 12/30/20 08:15 12/29/20 12/30/20 12/30/20 22:59 06:59 14:59 Intake Total 480 / 1030 400 / 1030 Balance 480 / 1030 400 / 1030 Weight last 48 hrs Weight 136 lb Physical Exam Narrative: EXAM NARRATIVE: Abdomen: Soft, nontender, nondistended Data : 12/30/20 05:42 12/30/20 05:42 A&P Assessment and plan (1) Coffee ground emesis: 75-year-old female with coffee-ground emesis who was recently admitted for esophagitis. Continue Protonix Plan for EGD under MAC today Procedure, risks, benefits and alternatives have been discussed with the patient who wishes to proceed with surgery. 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
--- NOTE | 2020-12-30 10:29 | PM.PN ---
Subjective Subjective: Interval history: No acute event overnight.No fresh episode of coffee ground emesis. S/P 2 Us PRBC . S/P EGD : No active bleeding source identified. Vitals/I&O/Wt Last Vital Signs Temp 98.4 F 12/30/20 09:14 Pulse 104 H 12/30/20 09:14 Resp 18 12/30/20 09:14 BP 121/70 12/30/20 09:14 Pulse Ox 96 12/30/20 09:14 12/29/20 12/30/20 12/30/20 22:59 06:59 14:59 Intake Total 480 / 630 400 / 1030 Balance 480 / 630 400 / 1030 Weight last 48 hrs Weight 61.689 kg Physical Exam Narrative: EXAM NARRATIVE: Alert and Awake Const: COMMON NORMALS: patient oriented x3 Chest: CHEST: Yes Symmetrical chest wall rise Resp: COMMON NORMALS: clear to auscultation bilaterally EFFORT & INSPECTION: Yes symmetric chest movement AUSCULTATION: clear to auscultation bilaterally Cardio: COMMON NORMALS: regular rate, regular rhythm, S1 normal heart sound present, S2 normal heart sound present, No gallops present (Cardio), No murmurs present (Cardio), No rub (Cardio) and Peripheral pulses 2+ throughout RATE: regular rate RHYTHM: regular rhythm HEART SOUNDS: S1 normal heart sound present and S2 normal heart sound present PERIPHERAL PULSES: Peripheral pulses 2+ throughout GI: COMMON NORMALS: Normal to inspection, nondistended, normoactive bowel sounds present, Soft to palpation, non-tender, No hepatosplenomegaly present and no masses AUSCULTATION: Yes normoactive bowel sounds PALPATION: Yes Soft to palpation and Yes No hepatosplenomegaly present RECTAL EXAM: deferred Extremity: COMMON NORMALS: no pedal edema Neuro: COMMON NORMALS: patient oriented x3 Data : 12/30/20 05:42 12/30/20 05:42 A&P Assessment and plan (1) Hematemesis: Initially NPO.Currently switched to G/I Soft diet Initially on Protonix 40 mg I.V Q12 H Daily.Switched to protonix 40 mg po daily S/P 2Us PRBC on 12/28: Hb is 11 ---> 9.5 S/P EGD: No active bleeding source identified. Mild Esophagitis. Possible outpatient colonscopy Status: Acute (2) Gastritis: Status: Acute (3) Anemia due to blood loss: Monitor CBC Transfuse to maintain Hb> 7 Status: Acute (4) UTI (urinary tract infection): Patient was treated for E Faecium UTI with zyvox on prior admission. Urine culture on this admission Has shown E.Fecium: Urine is foul smelling and cloudy. Will restart zyvox 600 mg q12 h daily for 7 days. Repeat Urine culture. Status: Acute (5) Leukocytosis: Xray chest r/o possible aspiration: No change in left lower lobe opacity which could represent atelectasis and/or pneumonia. Lactic acid:1.1 Blood Culture: Urine Culture: Urine culture : E. Faecium Empirically cover her with Levofloxacin 750 mg I.V Daily for possible G/I Translocation Status: Acute (6) Type 2 diabetes mellitus: LDSSI FSG Status: Acute (7) Pulmonary embolism: Not on Ac Status: Acute (8) DVT (deep venous thrombosis): Status: Acute (9) Coronary artery disease: Status: Acute (10) COPD (chronic obstructive pulmonary disease): Currenly not in exacerbation Status: Acute (11) Congestive heart failure: Currently compensated. Status: Acute Additional A&P Information Code Status :Full Code DVT PPX: SCDs Disposition :N/H Attestations Medical Necessity Statement*: Patient needs to be in hospital for the management of U.G.I Bleed. 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
[2020-12-30] MEDS: pantoprazole 40 mg SDV IVP (11:55)
[2020-12-30] MEDS: ipratropium-albuterol 3 mL Neb INHALATION ×2 (14:26→20:24)
--- NOTE | 2020-12-30 14:33 | ANE.PACU2 ---
Inpatient post-anesthesia follow up: Airway intact: Yes Vital signs: Temperature 98.2 F Pulse Rate [Monito r] 110 Pulse Rate 112 Respiratory Rate 22 Blood Pressure [Le ft Arm] 113/67 Blood Pressure 130/64 Pulse Oximetry 98 Oxygen Delivery Me thod Nasal Cannula Oxygen Flow Rate 5 Fraction of Inspir ed Oxygen 30 Hydration adequate: Yes Nausea and vomiting: No Pain level: 1 Mental status: Baseline
[2020-12-30] MEDS: linezolid 600 mg Tablet PO (17:46)
[2020-12-30] MEDS: metoprolol tartrate 25 mg Tablet 12.5 MG PO (20:08)
[2020-12-30] MEDS: LORazepam 1 mg Tablet PO (20:10)
[2020-12-31 04:00] VITALS: BP 115/69; PULSE 92; RESP 16; TEMP 36.8; O2SAT 96
[2020-12-31] MEDS: linezolid 600 mg Tablet PO (05:30)
[2020-12-31 06:17] LABS: Basophils % 0.5 %; Eosinophils # 0.3 10^3/uL (0.0-0.8); Eosinophils % 4.1 %; Hematocrit 33.5 % (37.0-47.0); Lymphocytes # 1.5 10^3/uL (0.8-4.8); Lymphocytes % 20.1 %; Mean Corpuscular HGB Conc 29.9 g/dL (30.0-36.0); Mean Corpuscular Hemoglobin 25.8 pg (28.0-34.0); Mean Corpuscular Volume 86.6 fL (81-99); Mean Platelet Volume 10.3 fL (7.4-10.4); Monocytes # 0.9 10^3/uL (0.2-0.9); Monocytes % 11.6 %; Neutrophils # 4.81 10^3/uL (1.8-7.7); Neutrophils % 63.2 %; Nucleated Red Blood Cells % 0 %; Platelet Count 350 10^3/cmm (130-400); Red Blood Count 3.87 10^6/uL (4.1-5.3); White Blood Count 7.6 10^3/uL (4.0-10.0)
[2020-12-31 06:51] LABS: Alanine Aminotransferase 11 U/L (0-33); Albumin Level 2.9 g/dL (3.5-5.2); Alkaline Phosphatase 50 IU/L (35-105); Anion Gap 11.6 (5-19); Aspartate Amino Transferase 12 U/L (0-32); Blood Urea Nitrogen 8 mg/dL (8-23); Calcium 8.3 mg/dL (8.5-10.5); Carbon Dioxide 30 mmol/L (22-29); Chloride 96 mmol/L (98-107); Globulin 3.3 g/dL (1.3-4.6); Glucose 121 mg/dL (65-115); Osmolality Calculated 278 mOsm/kg (285-295); Potassium 3.6 mmol/L (3.5-5.1); Sodium 134 mmol/L (136-145); Total Bilirubin 0.2 mg/dL (0.15-1.2); Total Protein 6.2 g/dL (6.6-8.7)
[2020-12-31 07:27] VITALS: BP 177/74; PULSE 113; RESP 17; TEMP 36.7; O2SAT 91
[2020-12-31] MEDS: levofloxacin-dextrose 5 % 750 MG/150 ML PREMIX 100 MG IV (07:40)
[2020-12-31] MEDS: LORazepam 1 mg Tablet PO (07:40)
[2020-12-31] MEDS: pantoprazole DR 40 mg Tablet PO (07:41)
[2020-12-31] MEDS: metoprolol tartrate 25 mg Tablet 12.5 MG PO (07:41)
[2020-12-31 07:58] VITALS: PULSE 103; RESP 18; O2SAT 96
[2020-12-31] MEDS: ipratropium-albuterol 3 mL Neb INHALATION (07:58)
[2020-12-31 08:09] VITALS: PULSE 101; RESP 18; O2SAT 96
[2020-12-31 12:00] VITALS: BP 124/79; PULSE 86; RESP 18; TEMP 36.7; O2SAT 96
--- NOTE | 2020-12-31 12:46 | PC.SOCIAL ---
IMM update Pg.2 of IMM updated and reviewed with patient, verbalized understanding, and copy provided.
--- NOTE | 2020-12-31 13:30 | PM.DCS ---
Discharge Providers Date of Admission: 12/28/20 12:02 Date of Discharge: December 31, 2020 Attending Provider at Admission: Dima Castillo MD Attending Provider at Discharge: Dima Castillo MD Primary Care Provider: Fanny Devlin MD, [facility] [place] Diagnoses at Discharge Discharge Diagnosis (1) Hematemesis: Status: Resolved Permanent problem details: S/P Repeat EGD on 12/30:Mild essophagitis. (2) Gastritis: Status: Acute (3) Anemia due to blood loss: Status: Acute (4) UTI (urinary tract infection): Status: Acute (5) Leukocytosis: Status: Acute (6) Type 2 diabetes mellitus: Status: Acute (7) Pulmonary embolism: Status: Acute (8) DVT (deep venous thrombosis): Status: Acute (9) Coronary artery disease: Status: Acute Permanent problem details: / [place] (10) COPD (chronic obstructive pulmonary disease): Status: Acute (11) Congestive heart failure: Status: Acute Permanent problem details: Chronic combined systolic/diastolic Reason for Visit Reason for Visit: COFFEE GROUND EMESIS Hospital Course Hospital Course 75 year old female with PMH of COPD On 4Ls home oxgen, Combined HFrEF as well as HFpEF, CAD , DVT, /PE ( No on Ac ) , COVID, HTN, DM Came in with c/o having several episodes of hematemesis starting overnight, described as coffee ground emesis. She was recently discharged on after undergoing EGD for similar complain.ED Done on 12/18/20 which showed esophagitis, moderate amount of coffee ground material was noted in the stomach, no bleeding identified. Biopsy for H.pylori :Negative. 1 unit of packed red blood cells were transfused on December 20, 2019. Hemoglobin at discharge was at 9.4. Patient's Eliquis and Plavix have been discontinued at the time of discharge.Upon arrival in the ER she was worked up for above mentioned complain. Pertinent Imaging studies: C.T ABdomen and Plvis without Contrast: Severe distention of the stomach with fluid and air. This may be due to gastroparesis. The duodenal C-loop is not well visualized. Obstructing lesion is not evident but should be considered as a possible etiology. There is no ischemic change.Mild constipation.No free air or free fluid. Small bilateral pleural effusions with minimal increase in size since the prior study.Fluid in the distal esophagus from reflux disease. EKG:Sinus Tachycardia with LAD Pertinent Labs : H/H : 6.4/21, WBC : 18T.She was kept NPO,ON I.V Protonix received 2 U PRBC during hospital stay and underwent Repeat EGD: No active bleeding source identified. Mild Esophagitis.Post Transfusion her H/H remained stable, had no fresh epiosdes of Hematemesis, BRBPR,Tati. She will follow as outpatient for possible colonscopy and possible capsule endoscopy if needed. She was also treated for possible aspiration PNA was kept on levofloxacin and was being discharged on po levofloxacin 500 dialy for 7 days. Lactic acid:1.1, 0.08.She was also managed for persistent Urine culture : E. Faecium seen on urine culture during previous admission also and treated with zyvox. She was restrated on zyvox and is being discharged on extended course for 7 days.Urine was foul smelling and cloudy.Though she was not complaining of any trypical uti symptoms but she is a poor historian. Patient responded well to the above medical management and is being discharged in stable condition. Physical Exam Narrative: EXAM NARRATIVE: Alert and Awake Const: COMMON NORMALS: patient oriented x3 Chest: CHEST: Yes Symmetrical chest wall rise Resp: COMMON NORMALS: clear to auscultation bilaterally EFFORT & INSPECTION: Yes symmetric chest movement AUSCULTATION: clear to auscultation bilaterally Cardio: COMMON NORMALS: regular rate, regular rhythm, S1 normal heart sound present, S2 normal heart sound present, No gallops present (Cardio), No murmurs present (Cardio), No rub (Cardio) and Peripheral pulses 2+ throughout RATE: regular rate RHYTHM: regular rhythm HEART SOUNDS: S1 normal heart sound present and S2 normal heart sound present PERIPHERAL PULSES: Peripheral pulses 2+ throughout GI: COMMON NORMALS: Normal to inspection, nondistended, normoactive bowel sounds present, Soft to palpation, non-tender, No hepatosplenomegaly present and no masses AUSCULTATION: Yes normoactive bowel sounds PALPATION: Yes Soft to palpation and Yes No hepatosplenomegaly present RECTAL EXAM: deferred Extremity: COMMON NORMALS: no pedal edema Neuro: COMMON NORMALS: patient oriented x3 Discharge Data Data Completed and Pending: Completed Studies During Hospitalization Category Date Time Status CT abdomen pelvis w con* [id number] Stat Cat Scan 12/28/20 10:51 Completed XR chest 1V nasima ble [id number] Stat Exams 12/28/20 21:09 Completed Labs from last 24 hours 12/31/20 12/31/20 06:03 06:03 WBC 7.6 RBC 3.87 L Hgb 10.0 L Hct 33.5 L MCV 86.6 MCH 25.8 L MCHC 29.9 L RDW 16.0 H Plt Count 350 MPV 10.3 Neut % (Auto) 63.2 Lymph % (Auto) 20.1 [place] % (Auto) 11.6 Eos % (Auto) 4.1 Baso % (Auto) 0.5 Neut # (Auto) 4.81 Lymph # (Auto) 1.5 [place] # (Auto) 0.9 Eos # (Auto) 0.3 Baso # (Auto) 0.0 Nucleated RBC % (a uto) 0 Nucleated RBCs # 0.0 Sodium 134 L Potassium 3.6 Chloride 96 L Carbon Dioxide 30 H Anion Gap 11.6 BUN 8 Creatinine 0.3 L GFR Calculation Not Reportable Glucose 121 H Calculated Osmolal ity 278 L Calcium 8.3 L Total Bilirubin 0.2 AST 12 ALT 11 Alkaline Phosphata se 50 Total Protein 6.2 L Albumin 2.9 L Globulin 3.3 Vitals: Last Vital Signs Temp 98.0 F 12/31/20 12:00 Pulse 86 12/31/20 12:00 Resp 18 12/31/20 12:00 BP 124/79 12/31/20 12:00 Pulse Ox 96 12/31/20 12:00 Discharge Plan Discharge Patient Disposition: Home Condition: Stable Prescriptions: New levofloxacin 500 mg tablet 500 mg PO DAILY 5 Days RF: 0 Zyvox 600 mg tablet 600 mg PO BID Qty: 14 RF: 0 Continued multivitamin Tablet 1 tab PO DAILY@08 RF: 0 acetaminophen [Tylenol] 325 mg Tablet 650 mg PO QID PRN (Reason: Pain) RF: 0 ipratropium-albuterol 0.5 mg-3 mg(2.5 mg base)/3 mL Solution For Nebulization 3 ml INHALATION Q4H PRN (Reason: Shortness Of Breath) RF: 0 albuterol sulfate 2.5 mg /3 mL (0.083 %) Solution For Nebulization 2.5 mg INHALATION Q4H PRN (Reason: Shortness Of Breath) RF: 0 hydrocodone-acetaminophen 5-325 mg Tablet 1 tab PO Q6H PRN (Reason: Pain) RF: 0 ondansetron HCl [Zofran] 4 mg Tablet 4 mg PO Q8H PRN (Reason: Nausea) RF: 0 sennosides-docusate sodium [Senna-S] 8.6-50 mg Tablet 1 tab-cap PO BID PRN (Reason: Constipation) RF: 0 potassium chloride 10 mEq Tablet Extended Release 10 meq PO DAILY@08 RF: 0 simvastatin 40 mg Tablet 40 mg PO DAILY@20 RF: 0 lorazepam 0.5 mg Tablet 0.5 mg PO Q4H PRN (Reason: Anxiety) RF: 0 Enema Disposable 19-7 gram/118 mL Enema 118 ml MD DAILY PRN (Reason: Constipation) RF: 0 furosemide [Lasix] 20 mg Tablet 20 mg PO DAILY@08 RF: 0 gabapentin 100 mg Capsule 100 mg PO TID@08,16,20 RF: 0 polyethylene glycol 3350 [Miralax] 17 gram/dose Powder 17 g PO DAILY PRN (Reason: Constipation) RF: 0 metoprolol tartrate 25 mg Tablet 12.5 mg PO BID@08,20 RF: 0 mirtazapine 7.5 mg Tablet 7.5 mg PO DAILY@20 RF: 0 budesonide-formoterol [Symbicort] 160-4.5 mcg/actuation Hfa Aerosol Inhaler 2 puff INHALATION BID@08,20 RF: 0 bisacodyl 10 mg Suppository 10 mg MD DAILY PRN (Reason: Constipation) RF: 0 food supplemt, lactose-reduced Liquid See Rx Instructions .ROUTE .COMPLEX RF: 0 Biofreeze (menthol) 4 % Gel See Rx Instructions .ROUTE .COMPLEX RF: 0 pantoprazole 40 mg tablet,delayed release (DR/EC) 40 mg PO BID@08,20 RF: 0 Discharge Orders: Discharge Order (Routine); Ordered 12/31/20 Ordered By: Dima Castillo Referrals: Bartolo Rdoriguez MD [Physician] - 01/11/21 1:10 pm (Please call Sunday to schedule a follow up appointment. ) Discharge Diet: GI Soft Discharge Activity: Resume usual activity Patient Instructions: COPD, Levofloxacin (By mouth), Linezolid (By mouth), COPD Stoplight, GI Discharge Instructions, Pulmonary Embolism Discharge Attestations Time Spent in Discharge Care*: less than 30 min Specific Discharge Activities: educating patient, educating and/or supporting family/caregiver, discussing with pcp/other providers, discussing with continuous pillowcase cutter/social workers/dc planners, documenting/other paperwork and evaluating patient/reviewing data Status at Discharge: Cognitive status at discharge: cognitively intact, Behavioral status at discharge: cooperative, Functional status at discharge: independent ambulation Overall status at discharge: patient is back to baseline Quality Metrics Clinical Quality Measures During this hospital stay, did patient experience: None Coding Level of Care Code Acute Chg FW DC note Diagnoses Hematemesis K92.0 Gastritis K29.70 Anemia due to blood loss D50.0 UTI (urinary tract infection) N39.0 Leukocytosis D72.829 Type 2 diabetes mellitus E11.9 Pulmonary embolism I26.99 DVT (deep venous thrombosis) I82.409 Coronary artery disease I25.10 COPD (chronic obstructive pulmonary disease) J44.9 Congestive heart failure I50.9
[2020-12-31 15:52] VITALS: BP 124/79; PULSE 86; RESP 18; TEMP 36.7; O2SAT 96
== END 2020-12-31 14:55 | disposition skilled nursing facility (03) | DRG 377 ==
LOC: ER 12:35 → MEDSURG 13:12
PROVIDERS: Surgery; Admitting Provider Internal Medicine; Emergency Provider Family Medicine; PCP Family Medicine; Visit Provider Internal Medicine
PROC: 0DJ08ZZ Inspection of Upper Intestinal Tract, Via Natural or Artificial Opening Endoscopic (ICD-10-PCS; CPT 43235; principal; 2020-12-30 07:30)
DX: K92.0 Hematemesis (principal); J69.0 Pneumonitis due to inhalation of food and vomit; J44.0 Chronic obstructive pulmonary disease with (acute) lower respiratory infection; I50.42 Chronic combined systolic (congestive) and diastolic (congestive) heart failure; N39.0 Urinary tract infection, site not specified; Z99.81 Dependence on supplemental oxygen; I11.0 Hypertensive heart disease with heart failure; I25.10 Atherosclerotic heart disease of native coronary artery without angina pectoris; Z86.711 Personal history of pulmonary embolism; Z86.718 Personal history of other venous thrombosis and embolism; Z86.16 Personal history of COVID-19; E11.43 Type 2 diabetes mellitus with diabetic autonomic (poly)neuropathy; K31.84 Gastroparesis; K59.00 Constipation, unspecified; I25.2 Old myocardial infarction; M19.90 Unspecified osteoarthritis, unspecified site; F03.90 Unspecified dementia, unspecified severity, without behavioral disturbance, psychotic disturbance, mood disturbance, and anxiety; F32.9 Major depressive disorder, single episode, unspecified; Z87.891 Personal history of nicotine dependence; K29.70 Gastritis, unspecified, without bleeding; D50.0 Iron deficiency anemia secondary to blood loss (chronic); K20.90 Esophagitis, unspecified without bleeding; Z79.891 Long term (current) use of opiate analgesic; Z79.51 Long term (current) use of inhaled steroids
CPT/HCPCS: 36415; 36430; 43235; 51701; 71045; 74177; 80053; 81001; 83605; 83690; 83735; 83880; 84145; 84484; 85025; 85610; 86850; 86900; 86920; 87077; 87086; 87186; 93005; 94640; 94660; 96361; 96374; 99285; C9113; J0696; J1940; J1956; J2405; J2704; J7030; P9016; Q9967